=== PATIENT | female | born 1955 | race Hispanic/Latino ===

== ENCOUNTER 2017-04-21 14:47 | Emergency (ER) | payer MEDICARE, MEDICAID ==
[2017-04-21 14:47] VITALS: BMI 42.0
[2017-04-21 14:59] VITALS: RESP 20
[2017-04-21] MEDS ORDERED: Sodium Chloride 0.9% 1,000 ML IV ONE (16:15)
[2017-04-21] MEDS ORDERED: Sodium Chloride 0.9% 1,000 ML ONE (17:04)
[2017-04-21 17:35] LABS: EOS # 0.2 K/uL (0.0-0.7); MEAN CORPUSCULAR HEMOGLOBIN 25.2 pg (27.0-31.0); MONO # 0.6 K/uL (0.0-0.8)
[2017-04-21 17:42] LABS: CHLORIDE 97 mmol/L (98-107)
[2017-04-21 17:43] LABS: POTASSIUM 4.2 mmol/L (3.6-5.2); SODIUM 135 mmol/L (132-148)
[2017-04-21 17:45] LABS: ALB/GLOB RATIO 1.5 (1.0-2.1); ALKALINE PHOSPHATASE 71 U/L (38-126); ALT/SGPT 75 U/L (9-52); AST/SGOT 81 U/L (14-36); BILIRUBIN,TOTAL 0.6 mg/dL (0.2-1.3); BLOOD UREA NITROGEN 14 mg/dL (7-17); CARBON DIOXIDE 25 mmol/L (22-30); GFR AFRICAN-AMERICAN > 60; GLUCOSE,RANDOM 96 mg/dL (65-105); TOTAL PROTEIN 7.1 g/dL (6.3-8.3)
[2017-04-21 17:46] LABS: CALCIUM 7.9 mg/dl (8.6-10.4)
[2017-04-21 17:52] LABS: BASO % 0.4 % (0.0-2.0); EOS % 1.9 % (0.0-4.0); HEMATOCRIT 39.6 % (34.0-47.0); LYMPH % 36.8 % (20.0-40.0); MEAN CELL VOLUME 78.1 fL (81.0-99.0); MEAN CORPUSCULAR HGB CONC 32.3 g/dL (33.0-37.0); MEAN PLATELET VOLUME 8.1 fL (7.2-11.7); NRBC % 0.1 % (0.0-2.0); RED CELL DISTRIBUTION WIDTH 18.1 % (11.5-14.5)
--- NOTE | 2017-04-21 18:15 | C.PDOC ---
History Of Present Illness <Edna Powers - Last Filed: 04/21/17 19:07> <Cedrick Ruff - Last Filed: 04/21/17 22:48> 61 y/o female presents to ED for evaluation of left sided back pain radiating to the abdomen for the last 2 weeks. Pt reports associated hematuria. Pt also complaints of right foot pain s/p trip and fall. Otherwise, denies any change in sensation, n/v/d, bowel/bladder incontinence, dysuria, fever, or chills. Notes being seen by PMD who advised her to report to ED for further evaluation. (PriyaEdna) History Per: Patient History/Exam Limitations: no limitations Onset/Duration Of Symptoms: Days (2 weeks) Current Symptoms Are (Timing): Still Present Quality Of Discomfort: "Pain" Previous Symptoms: Back Pain. denies: Prior Injury Associated Symptoms: None. denies: Incontinence, New Weakness, New Numbness Exacerbating Factor(s): Nothing Recent travel outside of the [place]: No Additional History Per: Patient <Edna Powers - Last Filed: 04/21/17 19:07> <Cedrick Ruff - Last Filed: 04/21/17 22:48> Time Seen by Provider: 04/21/17 16:00 Chief Complaint (Nursing): Back Pain Past Medical History Reviewed: Historical Data, Nursing Documentation, Vital Signs - Medical History PMH: Anemia, Anxiety, Asthma, Bronchitis, CAD, CHF, COPD, Depression, Diabetes, Gall Bladder Disease, HTN, Hypercholesterolemia, Hyperlipidemia, Pneumonia Denies: Chronic Kidney Disease, Seizures, Sexually Transmitted Disease Surgical History: CABG (per old chart, pt denies, but uncertain of type of past open heart surgery), Cholecystectomy Family History: States: CAD - Social History Hx Tobacco Use: No Hx Alcohol Use: No Hx Substance Use: No - Immunization History Hx Tetanus Toxoid Vaccination: No Hx Influenza Vaccination: Yes Hx Pneumococcal Vaccination: Yes <Edna Powers - Last Filed: 04/21/17 19:07> Review Of Systems Except As Marked, All Systems Reviewed And Found Negative. Constitutional: Negative for: Fever, Chills Gastrointestinal: Positive for: Abdominal Pain. Negative for: Nausea, Vomiting , Diarrhea, Constipation Genitourinary: Positive for: Hematuria. Negative for: Dysuria, Frequency, Incontinence, Vaginal Discharge, Vaginal Bleeding Musculoskeletal: Positive for: Back Pain, Foot Pain (right) Skin: Negative for: Rash, Bruising Neurological: Negative for: Weakness, Numbness <Edna Powers - Last Filed: 04/21/17 19:07> Physical Exam - Physical Exam Appears: Non-toxic, No Acute Distress Skin: Warm, Dry, No Rash, Ecchymosis (dorsal aspect of right foot) Head: Atraumatic, Normacephalic Eye(s): bilateral: Normal Inspection, EOMI Nose: Normal Oral Mucosa: Moist Neck: Normal ROM, Supple Chest: Symmetrical Cardiovascular: Rhythm Regular, No Murmur Respiratory: Normal Breath Sounds, No Rales, No Rhonchi, No Wheezing Gastrointestinal/Abdominal: Soft, Tenderness (left sided), No Guarding, No Rebound Back: CVA Tenderness (left), No Vertebral Tenderness, No Paraspinal Tenderness Extremity: Normal ROM, Tenderness, No Pedal Edema, Capillary Refill (<2 sec.), No Deformity, Swelling (dorsal aspect of right foot) Pulses: Left Dorsalis Pedis: Normal, Right Dorsalis Pedis: Normal Neurological/Psych: Oriented x3, Normal Speech, Normal Motor, Normal Sensation <Edna Powers - Last Filed: 04/21/17 19:07> ED Course And Treatment - Laboratory Results Result Diagrams: 04/21/17 17:26 04/21/17 17:26 O2 Sat by Pulse Oximetry: 96 Pulse Ox Interpretation: Normal Progress Note: Blood work, UA, right foot x-ray ordered and reviewed. Pt was given Toradol, and IV fluids. On re-eval, patient is resting comfortably, notes improvement of back pain. No fever, no bony tenderness, no numbness, no weakness , or abdominal pain. Pt endorsed to Dr Ruff pending CT results and re- evaluation. <Edna Powers - Last Filed: 04/21/17 19:07> - Laboratory Results Result Diagrams: 04/21/17 17:26 04/21/17 17:26 <Cedrick Ruff - Last Filed: 04/21/17 22:48> Disposition - Disposition Disposition Time: 19:08 <Edna Powers - Last Filed: 04/21/17 19:07> Discussed With Dr.: Sebastian Olmstead Doctor Will See Patient In The: Office (next week) Counseled Patient/Family Regarding: Studies Performed, Diagnosis, Need For Followup, Rx Given <Cedrick Ruff - Last Filed: 04/21/17 22:48> - Disposition Referrals: Sebastian Olmstead MD [Staff Provider] - Disposition: HOME/ ROUTINE Condition: FAIR Prescriptions: Acetaminophen with Codeine [Tylenol with Codeine #3 Tablet] 1 each PO TID PRN # 15 tablet PRN Reason: Pain, Severe (8-10) Nitrofurantoin Macrocrystals [Macrobid] 1 cap PO BID #14 cap Ondansetron ODT [Zofran ODT] 1 odt PO BID PRN #6 odt PRN Reason: Nausea/Vomiting Instructions: Urinary Tract Infection in Women (DC), Kidney Stones (DC) Forms: [employer] (Armenian) - Clinical Impression Clinical Impression: Foot contusion, Abdominal pain, UTI (urinary tract infection), Kidney stone on right side - 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 - Scribe Statement The provider has reviewed the documentation as recorded by the Scribe <Edna Powers - Last Filed: 04/21/17 19:07> <Cedrick Ruff - Last Filed: 04/21/17 22:48> - Scribe Statement Puma Melendez All medical record entries made by the Scribe were at my direction and personally dictated by me. I have reviewed the chart and agree that the record accurately reflects my personal performance of the history, physical exam, medical decision making, and the department course for this patient. I have also personally directed, reviewed, and agree with the discharge instructions and disposition. (Edna Powers)
[2017-04-21 20:25] LABS: RBC URINE 4 /hpf (0-3); TRANSITIONAL EPITHIAL < 1 /hpf (0-3); URINE BACTERIA OCC (<OCC); URINE BILIRUBIN NEGATIVE (NEGATIVE); URINE BLOOD 1+ (NEGATIVE); URINE COLOR YELLOW (YELLOW); URINE GLUCOSE (UA) NEGATIVE (Normal); URINE KETONE TRACE mg/dL (NEGATIVE); URINE PROTEIN TRACE mg/dL (NEGATIVE); WBC URINE 36 /hpf (0-5)
[2017-04-21 20:26] LABS: URINE LEUKOCYTE ESTERASE 2+ Leu/uL (Negative); URINE UROBILINOGEN 0.2 mg/dL (0.2-1.0)
[2017-04-21 22:54] VITALS: BP 133/77; PULSE 62; TEMP 97.7; O2SAT 96
--- NOTE | 2017-04-22 08:14 | CT ---
PROCEDURE: CT Abdomen and Pelvis without intravenous contrast HISTORY: left flank pain COMPARISON: None. TECHNIQUE: Multiple contiguous axial images were performed through the abdomen and pelvis without intravenous contrast. Subsequently, sagittal and coronal reformatted images were obtained. Radiation dose: Total exam DLP = 1121 mGy-cm. This CT exam was performed using one or more of the following dose reduction techniques: Automated exposure control, adjustment of the mA and/or kV according to patient size, and/or use of iterative reconstruction technique. FINDINGS: LOWER THORAX: Unremarkable. LIVER: Diffuse moderate decrease in hepatic parenchymal density consistent with moderate fatty infiltration. GALLBLADDER AND BILE DUCTS: Gallbladder is not well visualized. PANCREAS: Unremarkable. No gross lesion or ductal dilatation. SPLEEN: Unremarkable. ADRENALS: Unremarkable. No mass. KIDNEYS AND URETERS: Prominent right mid upper renal collecting system calculi measuring up to 1.6 x 0.8 centimeters. No gross hydronephrosis. VASCULATURE: Unremarkable. No aortic aneurysm. BOWEL: Unremarkable. No obstruction. No gross mural thickening. Under distended the right hemicolon. APPENDIX: No findings to suggest acute appendicitis. PERITONEUM: Unremarkable. No free fluid. No free air. LYMPH NODES: Unremarkable. No enlarged lymph nodes. BLADDER: Urinary bladder is decompressed. REPRODUCTIVE: Prominent heterogeneous uterus involving the mid inferior margin as well as in the sagittal projection on series 602, image 95. Underlying myometrial or endometrial lesion cannot entirely be excluded. Correlation with pelvic ultrasound may be helpful. BONES: Degenerative changes in the spine and bilateral SI joints. OTHER FINDINGS: Atherosclerotic calcification within the aorta. Morbid obesity present. IMPRESSION: Negative acute. Right nephrolithiasis measuring up to 1.6 centimeters without evidence of obstructive uropathy. Hepatic steatosis. Enlarged uterus with heterogeneous features. Consider correlation with transvaginal sonogram to exclude potential underlying neoplasm given the patient's stated age. These findings were preliminarily reported at 10:21 p.m. on 04/21/[address] Jozef Arroyo from [facility].
--- NOTE | 2017-04-22 11:20 | RAD ---
PROCEDURE: Right Foot Radiographs. HISTORY: trauma COMPARISON: None. FINDINGS: BONES: Fracture doubted The posterior medial navicular appearance is consistent with a incomplete fused os tibialis externum. . Os peroneum noted. Probable medial 1st metatarsal base cortical hyperostoses-. Inferior calcaneal spur posterior calcaneal spur/blending Achilles enthesophyte JOINTS: Normal. No Lisfranc joint widening suggested SOFT TISSUES: Dorsal soft tissue swelling -mid to distal metatarsal shaft levels. OTHER FINDINGS: None. IMPRESSION: Marked dorsal soft tissue swelling -distal metatarsal levels. No metatarsal fracture or proximal phalangeal fracture seen. If further evaluation is needed, consider MRI of the foot - prominent soft tissue swelling noted. Accessory ossification centers
== END 2017-04-21 22:54 | disposition home or self-care (01) ==
LOC: C.ER 14:47
DX: N20.0 Calculus of kidney (principal); N39.0 Urinary tract infection, site not specified; S90.31XA Contusion of right foot, initial encounter; W01.0XXA Fall on same level from slipping, tripping and stumbling without subsequent striking against object, initial encounter; Y93.9 Activity, unspecified; Y92.9 Unspecified place or not applicable
CPT/HCPCS: 73630; 74176; 80053; 81001; 83690; 85025; 96374; 99284; J1885; J7040

== ENCOUNTER 2017-06-30 16:11 | Emergency (ER) | payer MEDICARE, MEDICAID ==
[2017-06-30 16:11] VITALS: BMI 42.0
[2017-06-30 16:46] VITALS: RESP 20
--- NOTE | 2017-06-30 16:58 | C.PDOC ---
History Of Present Illness 61 yo female w/PMHx HTN, CAD s/p PTCA, DM, COPD, psych ds, BIBA for evaluation of left hip, left lower back pain developed for past few hours after sustained mechanical fall. Pt reports, " was walking with my sister and tripped over her and fell down onto my left side". At present time, pt appears in emotional distress, crying, sitting on bed, no obvious deformity noted to left hip/left leg are. Pt denies head injury, LOC, syncope, headache, dizziness, visual changes, focal deficits, CP, SOB, dyspnea, diaphoresis, palpitation, abd. pain, denies weakness, sensory or vascular deficits to B/L lEs. 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) Past Medical History Reviewed: Historical Data, Nursing Documentation, Vital Signs Vital Signs: Last Vital Signs Temp 98.3 F 06/30/17 18:30 Pulse 67 06/30/17 18:30 Resp 20 06/30/17 18:30 BP 156/73 H 06/30/17 18:30 Pulse Ox 97 06/30/17 18:30 - Medical History PMH: Anemia, Anxiety, Asthma, Bronchitis, CAD, CHF, COPD, Depression, Diabetes, Gall Bladder Disease, HTN, Hypercholesterolemia, Hyperlipidemia, Pneumonia Surgical History: CABG (per old chart, pt denies, but uncertain of type of past open heart surgery), Cholecystectomy - [facility] Procedures DILATION OF 1 COR ART WITH 2 DRUG-ELUT, PERC APPROACH (10/05/16) GROUP PSYCHOTHERAPY (10/28/15) INDIVIDUAL PSYCHOTHERAPY, COGNITIVE-BEHAVIORAL (10/28/15) INTRODUCE OTH THROMBOLYTIC IN CORONARY ART, PERC (10/05/16) INTRODUCTION OF ANTI-INFLAM INTO RESP TRACT, VIA OPENING (07/16/16) MEASURE OF CARDIAC SAMPL & PRESSURE, L HEART, PERC APPROACH (10/05/16) NEBULIZER THERAPY (02/16/15) PLAIN RADIOGRAPHY OF L INT MAMM GRAFT USING OTH CONTRAST (05/17/15) PLAIN RADIOGRAPHY OF MULT COR ART USING OTH CONTRAST (10/05/16) PLAIN RADIOGRAPHY OF RIGHT AND LEFT HEART USING OTH CONTRAST (05/17/15) PLAIN RADIOGRAPHY OF THORACIC AORTA USING OTHER CONTRAST (05/17/15) Family History: States: CAD - Social History Hx Tobacco Use: No Hx Alcohol Use: No Hx Substance Use: No - Immunization History Hx Tetanus Toxoid Vaccination: No Hx Influenza Vaccination: Yes Hx Pneumococcal Vaccination: Yes Review Of Systems Except As Marked, All Systems Reviewed And Found Negative. Eyes: Negative for: Vision Change Cardiovascular: Negative for: Chest Pain, Palpitations Respiratory: Negative for: Shortness of Breath Gastrointestinal: Negative for: Abdominal Pain Musculoskeletal: Positive for: Back Pain (Lower back pain), Other ((+) Left hip pain) Neurological: Negative for: Weakness, Headache, Dizziness Physical Exam - Physical Exam Appears: Well, Non-toxic, No Acute Distress Skin: Normal Color, Warm, No Rash, No Ecchymosis Head: Atraumatic, Normacephalic Eye(s): bilateral: PERRL Nose: No Flaring, No Discharge Oral Mucosa: Moist Tongue: Normal Appearing Lips: Normal Appearing Neck: No Midline Cervical Tenderness, No Paracervical Tenderness, No Step Off Deformity, Supple Cardiovascular: Rhythm Regular Respiratory: No Decreased Breath Sounds, No Accessory Muscle Use, No Stridor, No Wheezing Gastrointestinal/Abdominal: Soft, No Tenderness Back: No CVA Tenderness, Paraspinal Tenderness (mild left lumbar. No midline tenderness, no ecchymoses.) Extremity: Normal ROM (FAROM of LLE), Tenderness (over left hip area. No palpable deformity, no neurovascular deficits to LLE.), No Deformity, No Swelling Neurological/Psych: Oriented x3, Normal Speech, Normal Motor, Normal Sensation, Normal Reflexes ED Course And Treatment O2 Sat by Pulse Oximetry: 98 (RA) Pulse Ox Interpretation: Normal - Other Rad L-spine X-Ray: Interpreted by Me, Viewed By Me Interpretation: (-) acute fx or sublux Pelvis, hip X-Ray: Interpreted by Me, Viewed By Me Interpretation: (-) acute fx or dislocation Progress Note: On re-eval, pt is afebrile, hemodynamicaly stable. Ambulatory in ED with stable gait. Head: AT/NC. ENT: no acute findings. Neck: Supple, (-) midline tenderness. Abd: benign. FAROM of B/L UEs and LEs, no defomrity, no ecchymoses noted. Neurologicaly intact. Imaging review and appears without acute findings. Pt has clinical findings c/w lower back contusion, hip contusion s/p mechanical fall. Pt advised on course of ds. ref. to F/u with PMD , ortho in 2-3 days for re-eval. return to ED if any worsening or new changes. Disposition Counseled Patient/Family Regarding: Studies Performed, Diagnosis, Need For Followup, Rx Given - Disposition Referrals: Sebastian Olmstead MD [Staff Provider] - Disposition: HOME/ ROUTINE Disposition Time: 18:22 Condition: STABLE Additional Instructions: Light duty to left leg Avoid prolong walking take medication for pain as need Follow up with PMD, Orthopedist in2-3 days for re-evaluation. Return to ED if any worsening or new changes. 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 - Scribe Statement The provider has reviewed the documentation as recorded by the Scribe Jodie Miner All medical record entries made by the Scribe were at my direction and personally dictated by me. I have reviewed the chart and agree that the record accurately reflects my personal performance of the history, physical exam, medical decision making, and the department course for this patient. I have also personally directed, reviewed, and agree with the discharge instructions and disposition.
[2017-06-30] MEDS ORDERED: Oxycodone/Acetaminophen 5/325 mg Tab PO STA (17:11)
[2017-06-30] MEDS ORDERED: Oxycodone/Acetaminophen 5/325 mg Tab ONE (18:36)
[2017-06-30 18:46] VITALS: BP 156/73; PULSE 67; TEMP 98.3
--- NOTE | 2017-07-01 09:01 | RAD ---
PROCEDURE: Radiographs of the Lumbar Spine. HISTORY: injury COMPARISON: Correlation made to CT scan of the abdomen pelvis dated 04/21/2017. FINDINGS: BONES: Anterior end plate osteophytic changes Normal alignment. No listhesis. No fracture. DISC SPACES: Mild narrowing. OTHER FINDINGS: None. IMPRESSION: Degenerative changes.
--- NOTE | 2017-07-01 10:04 | RAD ---
PROCEDURE: Left Hip X-ray Radiographs. HISTORY: injury COMPARISON: CT scan of the abdomen and pelvis dated 04/21/2017. FINDINGS: BONES: Normal. No fracture. JOINTS: Normal. SOFT TISSUES: Normal. OTHER FINDINGS: None. IMPRESSION: Normal left hip radiographs.
[2017-07-03 02:16] VITALS: O2SAT 98
== END 2017-06-30 18:43 | disposition home or self-care (01) ==
LOC: C.ER 16:11
DX: M54.5 Low back pain (principal); S70.02XA Contusion of left hip, initial encounter; W01.0XXA Fall on same level from slipping, tripping and stumbling without subsequent striking against object, initial encounter; Y92.89 Other specified places as the place of occurrence of the external cause

== ENCOUNTER 2017-08-21 13:54 | Emergency (ER) | payer MEDICARE, MEDICAID ==
[2017-08-21 13:55] VITALS: BMI 42.0
[2017-08-21 14:22] LABS: BASO # 0.1 K/uL (0.0-0.2); BASO % 1.1 % (0.0-2.0); EOS # 0.1 K/uL (0.0-0.7); EOS % 1.8 % (0.0-4.0); HEMOGLOBIN 13.3 g/dL (11.0-16.0); LYMPH % 35.6 % (20.0-40.0); MEAN CELL VOLUME 79.1 fL (81.0-99.0); MEAN CORPUSCULAR HEMOGLOBIN 26.5 pg (27.0-31.0); MEAN CORPUSCULAR HGB CONC 33.5 g/dL (33.0-37.0); MEAN PLATELET VOLUME 8.2 fL (7.2-11.7); MONO # 0.3 K/uL (0.0-0.8); MONO % 5.7 % (0.0-10.0); NEUT # 3.2 K/uL (1.8-7.0); NEUT % 55.8 % (50.0-75.0); RBC 5.01 Mil/uL (3.80-5.20); RED CELL DISTRIBUTION WIDTH 16.6 % (11.5-14.5); WHITE BLOOD COUNT 5.7 K/uL (4.8-10.8)
[2017-08-21 14:34] LABS: ALB/GLOB RATIO 1.1 (1.0-2.1); ALBUMIN 3.8 g/dL (3.5-5.0); ALT/SGPT 78 U/L (9-52); AST/SGOT 78 U/L (14-36); BLOOD UREA NITROGEN 14 mg/dL (7-17); CALCIUM 8.9 mg/dl (8.6-10.4); GFR AFRICAN-AMERICAN > 60; GFR NON-AFRICAN AMERICAN > 60
--- NOTE | 2017-08-21 14:54 | C.PDOC ---
History Of Present Illness Rosmery Hammonds is a 61 year old female, with a past medical history of diabetes and HTN, who was sent to the emergency department by her PMD for high sugar levels prior to arrival. Patient is also complaining of back pain, and abdominal pain associated with dysuria, chills and nausea onset for several days. 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 Patient also reports an increase frequency and describes a burning pain when she urinates. Last bowel movement was this morning. She denies any fever, chest pain, or shortness of breath. No further medical complaints. PMD: Sebastian Olmstead Time Seen by Provider: 08/21/17 14:06 Chief Complaint (Nursing): Abnormal Labs History Per: Patient History/Exam Limitations: no limitations Onset/Duration Of Symptoms: Days Current Symptoms Are (Timing): Still Present Reports Recently: Treated By A Physician Past Medical History Reviewed: Historical Data, Nursing Documentation, Vital Signs Vital Signs: Last Vital Signs Temp 97.7 F 08/21/17 16:01 Pulse 78 08/21/17 16:01 Resp 18 08/21/17 16:01 BP 135/78 08/21/17 16:01 Pulse Ox 96 08/21/17 17:48 - Medical History PMH: Anemia, Anxiety, Asthma, Bronchitis, CAD, CHF, COPD, Depression, Diabetes, Gall Bladder Disease, HTN, Hypercholesterolemia, Hyperlipidemia, Pneumonia Denies: Hepatitis, HIV, Chronic Kidney Disease, Seizures, Sexually Transmitted Disease Surgical History: CABG (per old chart, pt denies, but uncertain of type of past open heart surgery), Cholecystectomy - [facility] Procedures DILATION OF 1 COR ART WITH 2 DRUG-ELUT, PERC APPROACH (10/05/16) GROUP PSYCHOTHERAPY (10/28/15) INDIVIDUAL PSYCHOTHERAPY, COGNITIVE-BEHAVIORAL (10/28/15) INTRODUCE OTH THROMBOLYTIC IN CORONARY ART, PERC (10/05/16) INTRODUCTION OF ANTI-INFLAM INTO RESP TRACT, VIA OPENING (07/16/16) MEASURE OF CARDIAC SAMPL & PRESSURE, L HEART, PERC APPROACH (10/05/16) NEBULIZER THERAPY (02/16/15) PLAIN RADIOGRAPHY OF L INT MAMM GRAFT USING OTH CONTRAST (05/17/15) PLAIN RADIOGRAPHY OF MULT COR ART USING OTH CONTRAST (10/05/16) PLAIN RADIOGRAPHY OF RIGHT AND LEFT HEART USING OTH CONTRAST (05/17/15) PLAIN RADIOGRAPHY OF THORACIC AORTA USING OTHER CONTRAST (05/17/15) Family History: States: CAD - Social History Hx Tobacco Use: No Hx Alcohol Use: No Hx Substance Use: No - Immunization History Hx Tetanus Toxoid Vaccination: No Hx Influenza Vaccination: Yes Hx Pneumococcal Vaccination: Yes Review Of Systems Constitutional: Positive for: Chills. Negative for: Fever Cardiovascular: Negative for: Chest Pain Respiratory: Negative for: Shortness of Breath Gastrointestinal: Positive for: Nausea, Abdominal Pain Genitourinary: Positive for: Dysuria, Frequency Musculoskeletal: Positive for: Back Pain Physical Exam - Physical Exam Appears: Non-toxic, No Acute Distress Skin: Normal Color, Warm, Dry Head: Atraumatic, Normacephalic Neck: Normal ROM Chest: No Tenderness Cardiovascular: Rhythm Regular Respiratory: Normal Breath Sounds, No Accessory Muscle Use, No Wheezing Gastrointestinal/Abdominal: Normal Exam, Bowel Sounds, Soft, No Tenderness, No Guarding, No Rebound Back: CVA Tenderness (mild right) Extremity: Normal ROM, No Deformity, No Swelling Neurological/Psych: Oriented x3 (alert), Normal Speech, Normal Cognition ED Course And Treatment - Laboratory Results Result Diagrams: 08/21/17 14:16 08/21/17 14:16 O2 Sat by Pulse Oximetry: 96 (RA) Pulse Ox Interpretation: Normal Medical Decision Making Medical Decision Making: Initial impression: Hyperglycemia, UTI Initial Plan: --Comp Metabolic Panel --Ketone, serum (Qual) --CBC w/ differential --reevaluation 530 pm after iv fluids, pt bs 276 with corrected sodium 129, will d/c pt; pt will take evening insulin at home. pt has rx called in for insulin 70/30. will tx for uti, f/u pmd. Disposition Counseled Patient/Family Regarding: Studies Performed, Diagnosis, Need For Followup, Rx Given - Disposition Referrals: Sebastian Olmstead MD [Staff Provider] - Disposition: HOME/ ROUTINE Disposition Time: 17:35 Condition: IMPROVED Additional Instructions: Please take you medications as prescribed. Please make sure to make appointment with your doctor soon for follow up- and also well before you need refills. Take antibiotics as prescribed for urine infection. Drink more fluids. Prescriptions: Cephalexin [Keflex] 500 mg PO QID #28 capsule Instructions: Urinary Tract Infection in Women (ED), Diabetic Hyperglycemia (ED ) Forms: [facility] (French), General Discharge Instructions - Clinical Impression Clinical Impression: UTI (urinary tract infection), Hyperglycemia - Scribe Statement Perry Reeves All medical record entries made by the Scribe were at my direction and personally dictated by me. I have reviewed the chart and agree that the record accurately reflects my personal performance of the history, physical exam, medical decision making, and the department course for this patient. I have also personally directed, reviewed, and agree with the discharge instructions and disposition.
[2017-08-21 15:44] LABS: SQUAMOUS EPITHIAL 2 /hpf (0-5); URINE BACTERIA RARE (<OCC); URINE BILIRUBIN NEGATIVE (NEGATIVE); URINE CLARITY Clear (Clear); URINE COLOR Yellow (YELLOW); URINE GLUCOSE (UA) 3+ mg/dL (Normal); URINE NITRATE NEGATIVE (NEGATIVE); URINE PROTEIN 1+ mg/dL (NEGATIVE); URINE UROBILINOGEN NORMAL mg/dL (0.2-1.0)
[2017-08-21 16:01] VITALS: BP 135/78; PULSE 78; RESP 18; TEMP 97.7
[2017-08-21 16:01] LABS: URINE BLOOD 3+ (NEGATIVE); URINE LEUKOCYTE ESTERASE 3+ Leu/uL (Negative)
[2017-08-21 17:38] VITALS: O2SAT 96
== END 2017-08-21 17:52 | disposition home or self-care (01) ==
LOC: C.ER 13:54
DX: E11.65 Type 2 diabetes mellitus with hyperglycemia (principal); N39.0 Urinary tract infection, site not specified; I10 Essential (primary) hypertension; Z79.4 Long term (current) use of insulin; Z79.84 Long term (current) use of oral hypoglycemic drugs; Z87.891 Personal history of nicotine dependence

== ENCOUNTER 2017-09-18 12:18 | Emergency (ER) | payer MEDICARE, MEDICAID ==
[2017-09-18 12:35] VITALS: BMI 41.7
[2017-09-18 12:39] VITALS: TEMP 97.4
[2017-09-18 13:26] LABS: HCG,QUALITATIVE URINE NEGATIVE (NEGATIVE); SQUAMOUS EPITHIAL 9 /hpf (0-5); URINE BILIRUBIN NEGATIVE (NEGATIVE); URINE BLOOD 3+ (NEGATIVE); URINE CLARITY Hazy (Clear); URINE COLOR Yellow (YELLOW); URINE GLUCOSE (UA) NORMAL (Normal); URINE LEUKOCYTE ESTERASE 3+ Leu/uL (Negative); URINE NITRATE NEGATIVE (NEGATIVE); URINE PROTEIN 2+ mg/dL (NEGATIVE); URINE UROBILINOGEN NORMAL mg/dL (0.2-1.0)
[2017-09-18 14:11] LABS: BASO # 0.1 K/uL (0.0-0.2); BASO % 1.1 % (0.0-2.0); EOS # 0.5 K/uL (0.0-0.7); EOS % 4.2 % (0.0-4.0); HEMOGLOBIN 12.6 g/dL (11.0-16.0); LYMPH # 2.4 K/uL (1.0-4.3); LYMPH % 21.7 % (20.0-40.0); MEAN CELL VOLUME 79.8 fL (81.0-99.0); MEAN CORPUSCULAR HEMOGLOBIN 26.9 pg (27.0-31.0); MEAN CORPUSCULAR HGB CONC 33.7 g/dL (33.0-37.0); MONO # 0.7 K/uL (0.0-0.8); NEUT # 7.6 K/uL (1.8-7.0); NRBC % 0.1 % (0.0-2.0); RBC 4.69 Mil/uL (3.80-5.20); RED CELL DISTRIBUTION WIDTH 16.7 % (11.5-14.5)
[2017-09-18 14:19] LABS: WHITE BLOOD COUNT 11.3 K/uL (4.8-10.8)
[2017-09-18 14:30] LABS: PROTHROMBIN TIME 10.9 SECONDS (9.7-12.2)
[2017-09-18 15:07] LABS: ALB/GLOB RATIO 1.1 (1.0-2.1); ALBUMIN 3.9 g/dL (3.5-5.0); ALT/SGPT 110 U/L (9-52); AST/SGOT 85 U/L (14-36); BLOOD UREA NITROGEN 20 mg/dL (7-17); CALCIUM 8.7 mg/dl (8.6-10.4); GFR AFRICAN-AMERICAN > 60; GFR NON-AFRICAN AMERICAN > 60
[2017-09-18 15:21] VITALS: BP 113/70; PULSE 82; RESP 20; O2SAT 97
--- NOTE | 2017-09-18 16:52 | CT ---
PROCEDURE: CT Abdomen and Pelvis without Oral or IV contrast. HISTORY: hematuria, left flank pain COMPARISON: CT abdomen and pelvis without contrast performed 04/21/17 TECHNIQUE: Contiguous axial images of the abdomen and pelvis. No oral or IV contrast administered. Coronal and Sagittal reformats generated and reviewed. Radiation dose: Total exam DLP = 1065.34 mGy-cm. This CT exam was performed using one or more of the following dose reduction techniques: Automated exposure control, adjustment of the mA and/or kV according to patient size, and/or use of iterative reconstruction technique. FINDINGS: There is limited evaluation of the solid organs without the administration of IV contrast. LOWER THORAX: No visible consolidation, pleural effusion, or pneumothorax. Partially imaged median sternotomy wires. LIVER: Superior most hepatic dome excluded from view. Hepatomegaly. GALLBLADDER AND BILE DUCTS: The gallbladder is not visualized. PANCREAS: Fatty atrophy. SPLEEN: Unremarkable unenhanced appearance. ADRENALS: Unremarkable. KIDNEYS AND URETERS: No hydronephrosis or obstructing renal calculus. 8 mm nonobstructing right renal calculus. BLADDER: Under distention of the urinary bladder limits evaluation. REPRODUCTIVE: Uterus is present with heterogeneous appearance of the uterine parenchyma. APPENDIX: The appendix appears within normal limits of caliber. No secondary signs of acute appendicitis. BOWEL: The stomach is nondistended. Lack of oral contrast limits evaluation for bowel pathology. The bowel loops appear within normal limits of caliber without evidence of intestinal obstruction. Diverticulosis without CT evidence of acute diverticulitis. PERITONEUM: No significant free fluid. No definite free air. LYMPH NODES: No bulky lymphadenopathy identified. VASCULATURE: Atherosclerotic calcifications. No aortic aneurysm. BONES: Degenerative changes. OTHER FINDINGS: None. IMPRESSION: No acute findings identified. Additional findings as above.
--- NOTE | 2017-09-18 17:23 | C.PDOC ---
History Of Present Illness 61 y/o female presents to the ER complaining of vaginal bleeding. Patient states that she has an endometrial biopsy scheduled in the beginning of October. Patient reports that she goes to psychotherapy in [place] where she mentioned that she has vaginal bleeding. As result, they recommended her to visit the ER. Time Seen by Provider: 09/18/17 13:25 Chief Complaint (Nursing): Female Genitourinary History Per: Patient History/Exam Limitations: no limitations Onset/Duration Of Symptoms: Days Current Symptoms Are (Timing): Still Present Severity: Moderate Past Medical History Reviewed: Historical Data, Nursing Documentation, Vital Signs Vital Signs: Last Vital Signs Temp 97.4 F L 09/18/17 12:35 Pulse 82 09/18/17 15:20 Resp 20 09/18/17 15:20 BP 113/70 09/18/17 15:20 Pulse Ox 97 09/18/17 17:42 - Medical History PMH: Anemia, Anxiety, Asthma, Bronchitis, CAD, CHF, COPD, Depression, Diabetes, Gall Bladder Disease, HTN, Hypercholesterolemia, Hyperlipidemia, Pneumonia Denies: Hepatitis, HIV, Chronic Kidney Disease, Seizures, Sexually Transmitted Disease Surgical History: CABG (per old chart, pt denies, but uncertain of type of past open heart surgery), Cholecystectomy - [facility] Procedures DILATION OF 1 COR ART WITH 2 DRUG-ELUT, PERC APPROACH (10/05/16) GROUP PSYCHOTHERAPY (10/28/15) INDIVIDUAL PSYCHOTHERAPY, COGNITIVE-BEHAVIORAL (10/28/15) INTRODUCE OTH THROMBOLYTIC IN CORONARY ART, PERC (10/05/16) INTRODUCTION OF ANTI-INFLAM INTO RESP TRACT, VIA OPENING (07/16/16) MEASURE OF CARDIAC SAMPL & PRESSURE, L HEART, PERC APPROACH (10/05/16) NEBULIZER THERAPY (02/16/15) PLAIN RADIOGRAPHY OF L INT MAMM GRAFT USING OTH CONTRAST (05/17/15) PLAIN RADIOGRAPHY OF MULT COR ART USING OTH CONTRAST (10/05/16) PLAIN RADIOGRAPHY OF RIGHT AND LEFT HEART USING OTH CONTRAST (05/17/15) PLAIN RADIOGRAPHY OF THORACIC AORTA USING OTHER CONTRAST (05/17/15) Family History: States: CAD - Social History Hx Tobacco Use: No Hx Alcohol Use: No Hx Substance Use: No - Immunization History Hx Tetanus Toxoid Vaccination: No Hx Influenza Vaccination: Yes Hx Pneumococcal Vaccination: Yes Review Of Systems Except As Marked, All Systems Reviewed And Found Negative. Constitutional: Negative for: Fever, Chills Genitourinary: Positive for: Vaginal Bleeding Physical Exam - Physical Exam Appears: Non-toxic, No Acute Distress Skin: Normal Color, Warm Head: Atraumatic, Normacephalic Eye(s): bilateral: Normal Inspection Nose: Normal Oral Mucosa: Moist Neck: Supple Chest: Symmetrical Cardiovascular: Rhythm Regular Respiratory: Normal Breath Sounds, No Accessory Muscle Use, No Rales, No Rhonchi , No Wheezing Gastrointestinal/Abdominal: Normal Exam, Soft, No Tenderness Rectal: Heme Positive, Other (brown stool) Pelvic: No Vaginal Bleeding, Other (erythema of the vulva and labias, some whitish exudates on the labia and cottage cheese like exudates on the vagina) Extremity: Normal ROM Neurological/Psych: Oriented x3, Normal Speech, Normal Motor, Normal Sensation ED Course And Treatment - Laboratory Results Result Diagrams: 09/18/17 14:06 09/18/17 14:51 O2 Sat by Pulse Oximetry: 97 (RA) Pulse Ox Interpretation: Normal - CT Scan/US CT of Abdomen/Pelvis Other Rad Studies (CT/US): Read By Radiologist, Radiology Report Reviewed CT/US Interpretation: Accession No. : [id number]. Patient Name / ID : RACHAEL MORE / [id number]. Exam Date : 09/18/2017 16:21:41 ( Approved ). Study Comment : Sex / Age : F / 61Y. Creator : Tanisha Garcia. Dictator : Jennifer Gonzalez MD. Java Websphere Developer : Curing Finisher : Jennifer Gonzalez MD. Approver2 : Report Date : 09/18/2017 16:34:00. My Comment : . PROCEDURE: CT Abdomen and Pelvis without Oral or IV contrast. HISTORY: hematuria, left flank pain. COMPARISON: CT abdomen and pelvis without contrast performed . TECHNIQUE: Contiguous axial images of the abdomen and pelvis. No oral or IV contrast administered. Coronal and Sagittal reformats generated and reviewed. Radiation dose: Total exam DLP = 1065.34 mGy-cm. This CT exam was performed using one or more of the following dose reduction techniques: Automated exposure control, adjustment of the mA and/or kV according to patient size, and/or use of iterative reconstruction technique. FINDINGS: There is limited evaluation of the solid organs without the administration of IV contrast. LOWER THORAX: No visible consolidation, pleural effusion, or pneumothorax. Partially imaged median sternotomy wires. LIVER: Superior most hepatic dome excluded from view. Hepatomegaly. GALLBLADDER AND BILE DUCTS: The gallbladder is not visualized. PANCREAS: Fatty atrophy. SPLEEN: Unremarkable unenhanced appearance. ADRENALS: Unremarkable. KIDNEYS AND URETERS: No hydronephrosis or obstructing renal calculus. 8 mm nonobstructing right renal calculus. BLADDER: Under distention of the urinary bladder limits evaluation. REPRODUCTIVE: Uterus is present with heterogeneous appearance of the uterine parenchyma. APPENDIX: The appendix appears within normal limits of caliber. No secondary signs of acute appendicitis. BOWEL: The stomach is nondistended. Lack of oral contrast limits evaluation for bowel pathology. The bowel loops appear within normal limits of caliber without evidence of intestinal obstruction. Diverticulosis without CT evidence of acute diverticulitis. PERITONEUM: No significant free fluid. No definite free air. LYMPH NODES: No bulky lymphadenopathy identified. VASCULATURE: Atherosclerotic calcifications. No aortic aneurysm. BONES: Degenerative changes. OTHER FINDINGS: None. IMPRESSION: No acute findings identified. Additional findings as above. Progress Note: UA and CT-Abd/Pelv. ordered.UA was positive for signs of UTI. CT- Abd/Pelv. was found to be negative. Patient has been given prescriptions for UTI and discharged home. Disposition - Disposition Disposition: HOME/ ROUTINE Disposition Time: 17:31 Condition: STABLE Additional Instructions: Follow up with your PMD and OBGYN within 1-2 days. Return to ED if feel worse. Prescriptions: Nitrofurantoin Macrocrystals [Macrobid] 100 mg PO Q12 #14 cap Terconazole [Terazol 7] 0.4 cre VG DAILY #7 cre Acetaminophen [Tylenol 325mg tab] 2 tab PO Q6 #50 tab Instructions: Vulvovaginal Yeast Infection, Bloody Stools, Adult (DC), Acute Cystitis (DC) Forms: [facility] (Zambian) - Clinical Impression Clinical Impression: UTI (urinary tract infection), Vaginitis, Heme positive stool - PA / PAINT ROLLER COVER MACHINE SETTER / 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 - Scribe Statement The provider has reviewed the documentation as recorded by the Scribe Gilbert Arboleda Provider Attestation All medical record entries made by the Scribe were at my direction and personally dictated by me. I have reviewed the chart and agree that the record accurately reflects my personal performance of the history, physical exam, medical decision making, and the department course for this patient. I have also personally directed, reviewed, and agree with the discharge instructions and disposition.
== END 2017-09-18 17:57 | disposition home or self-care (01) ==
LOC: C.ER 12:18
DX: N39.0 Urinary tract infection, site not specified (principal); N76.0 Acute vaginitis; K92.1 Melena
CPT/HCPCS: 74176; 80053; 81001; 84703; 85025; 85610; 85730; 87086; 87181; 99285; G0328

== ENCOUNTER 2017-11-10 11:44 | Emergency (ER) | payer MEDICARE, MEDICAID ==
[2017-11-10 11:44] VITALS: BMI 41.7
[2017-11-10 12:23] VITALS: RESP 18
--- NOTE | 2017-11-10 13:58 | C.PDOC ---
History Of Present Illness 62 year old female presents to the ED for evaluation of intermittent vaginal bleeding and pelvic cramping which began 3 days ago. Patient states she underwent a procedure by her NECK CUTTER 2 weeks; patient is unsure what the specific procedure was or why it was done. She has not contacted or been evaluated by her NECK CUTTER for current symptoms. Patient denies fever, chills, chest pain, shortness of breath, nausea, vomiting, diarrhea, dysuria. NECK CUTTER: Dr. Izaguirre Time Seen by Provider: 11/10/17 13:04 Chief Complaint (Nursing): Female Genitourinary History Per: Patient History/Exam Limitations: no limitations Onset/Duration Of Symptoms: Days (3), Intermittent Episodes Current Symptoms Are (Timing): Still Present Severity: Mild Quality Of Discomfort: Cramping Associated Symptoms: denies: Fever, Chills, Nausea, Vomiting, Diarrhea, Chest Pain, Urinary Symptoms (dysuria, hematuria ) Additional History Per: Patient Abnormal Vaginal Bleeding: Yes Past Medical History Reviewed: Historical Data, Nursing Documentation, Vital Signs Vital Signs: Last Vital Signs Temp 9 F L 11/10/17 17:51 Pulse 70 11/10/17 17:51 Resp 18 11/10/17 17:51 BP 170/92 H 11/10/17 17:51 Pulse Ox 100 11/10/17 17:51 - Medical History PMH: Anemia, Anxiety, Asthma, Bronchitis, CAD, CHF, COPD, Depression, Diabetes, Gall Bladder Disease, HTN, Hypercholesterolemia, Hyperlipidemia, Pneumonia Surgical History: CABG (per old chart, pt denies, but uncertain of type of past open heart surgery), Cholecystectomy - [facility] Procedures DILATION OF 1 COR ART WITH 2 DRUG-ELUT, PERC APPROACH (10/05/16) GROUP PSYCHOTHERAPY (10/28/15) INDIVIDUAL PSYCHOTHERAPY, COGNITIVE-BEHAVIORAL (10/28/15) INTRODUCE OTH THROMBOLYTIC IN CORONARY ART, PERC (10/05/16) INTRODUCTION OF ANTI-INFLAM INTO RESP TRACT, VIA OPENING (07/16/16) MEASURE OF CARDIAC SAMPL & PRESSURE, L HEART, PERC APPROACH (10/05/16) NEBULIZER THERAPY (02/16/15) PLAIN RADIOGRAPHY OF L INT MAMM GRAFT USING OTH CONTRAST (05/17/15) PLAIN RADIOGRAPHY OF MULT COR ART USING OTH CONTRAST (10/05/16) PLAIN RADIOGRAPHY OF RIGHT AND LEFT HEART USING OTH CONTRAST (05/17/15) PLAIN RADIOGRAPHY OF THORACIC AORTA USING OTHER CONTRAST (05/17/15) Family History: States: CAD - Social History Hx Tobacco Use: No Hx Alcohol Use: No Hx Substance Use: No - Immunization History Hx Tetanus Toxoid Vaccination: No Hx Influenza Vaccination: Yes Hx Pneumococcal Vaccination: Yes Review Of Systems Except As Marked, All Systems Reviewed And Found Negative. Constitutional: Negative for: Fever, Chills Respiratory: Negative for: Cough, Shortness of Breath Gastrointestinal: Negative for: Nausea, Vomiting, Diarrhea Genitourinary: Positive for: Vaginal Bleeding, Other (pelvic cramping ). Negative for: Dysuria, Hematuria Skin: Negative for: Rash Physical Exam - Physical Exam Appears: Well, Non-toxic, No Acute Distress Skin: Normal Color, Warm, Dry, No Rash Head: Normacephalic Eye(s): bilateral: Normal Inspection Oral Mucosa: Moist Neck: Supple Cardiovascular: Rhythm Regular Respiratory: Normal Breath Sounds, No Rales, No Rhonchi, No Wheezing Gastrointestinal/Abdominal: Normal Exam, Bowel Sounds, Soft, No Tenderness, Other (obese) Pelvic: No Vaginal Bleeding, No Vaginal Discharge, No Cervical Motion Tenderness , No Cervix Open (closed), No Adnexal Tenderness, No Tender Uterus, Other ( erythema to B/L labia majora (fungal in appearance)) Extremity: Normal ROM Neurological/Psych: Oriented x3 ED Course And Treatment - Laboratory Results Result Diagrams: 11/10/17 13:57 11/10/17 13:57 O2 Sat by Pulse Oximetry: 97 (on RA) Pulse Ox Interpretation: Normal - CT Scan/US ct abd/pelvis Other Rad Studies (CT/US): Read By Radiologist, Radiology Report Reviewed CT/US Interpretation: Accession No. : [id number]. Patient Name / ID : RACHAEL MORE / [id number]. Exam Date : 11/10/2017 15:31:28 ( Approved ). Study Comment : Sex / Age : F / 62Y. Creator : Tanisha Garcia. Dictator : Nata Gregorio MD. Hog Ringer : Traffic Monitor Specialist : Nata Gregorio MD. Approver2 : Report Date : 11/10/2017 15:52:27. My Comment : . PROCEDURE: CT Abdomen and Pelvis without intravenous contrast. HISTORY: pelvic pain, hematuria,r/o kidney stone. COMPARISON: 09/18/2017. TECHNIQUE: CT scan of the abdomen and pelvis was performed without administration of intravenous contrast. Oral contrast was not administered. Coronal and sagittal reformatted images were obtained. Radiation dose: Total exam DLP =. Total exam DLP = 1211.09 MGy-cm. This CT exam was performed using one or more of the following dose reduction techniques: Automated exposure control, adjustment of the mA and/ or kV according to patient size, and/or use of iterative reconstruction technique. FINDINGS: LOWER THORAX: The lung bases are clear. LIVER: There is mild hepatomegaly and fatty liver. No ductal dilatation. GALLBLADDER AND BILE DUCTS: Not visualized and likely surgically absent. PANCREAS: Normal in size. No gross lesion or ductal dilatation. SPLEEN: Normal in sinus. ADRENALS : No discrete nodule. KIDNEYS AND URETERS: Both kidneys are normal in size. There is a 8 mm nonobstructing stone an punctate nonobstructing stone in the lower pole of the right kidney. No hydronephrosis. VASCULATURE: Unremarkable. No aortic aneurysm. BOWEL: The small bowel loops are normal in caliber. The colon is unremarkable. No obstruction. No gross mural thickening. APPENDIX: Normal appendix. PERITONEUM: No free fluid. No free air. LYMPH NODES: No enlarged lymph nodes. BLADDER: Unremarkable. REPRODUCTIVE: The uterus is enlarged for postmenopausal status with apparent thickening of the endometrium. BONES: No acute fracture. Within normal limits for the patient's age the. OTHER FINDINGS: None. IMPRESSION: 1. 8 mm nonobstructing stone in the lower pole of the right kidney. No hydronephrosis or obstructive uropathy. 2. Enlarged bulky uterus with apparent thickening of the central endometrial echo complex. Pelvic ultrasound is recommended for complete evaluation. Progress Note: Bloodwork, UA ordered and reviewed. IV toradol given for pain. UA shows RBCs and blood - CT scan abd/pelvis ordered to evaluate for kidney stone. Patient's pelvic exam does not show evidence of vaginal bleeding - patient's complaint likely due to hematuria. Reevaluation Time: 17:00 Reassessment Condition: Improved (Patient reassessed, is resting comfortably and states she feels better. CT scan shows stone in right kidney, no hydronephrosis. Patient instructed to follow up with Dr. Jurado and with urology within 1 week. She understands she should return to ED if symptoms worsen.) - Physician Consult Information Physician Contacted: Sony Izaguirre Outcome Of Conversation: Discussed patient with her data center technician, patient has hysteroscopic myomectomy/endometrial biopsy (due to postmenopausal bleeding). He states patient's pathology came back negative/benign. No need for ultrasound at this time, recommends blood sugar control and Diflucan for vulvovaginal candidiasis. Disposition Counseled Patient/Family Regarding: Studies Performed, Diagnosis, Need For Followup, Rx Given - Disposition Referrals: Alberto Calix MD [Staff Provider] - Sony Izaguirre MD [Staff Provider] - Disposition: HOME/ ROUTINE Disposition Time: 17:00 Condition: STABLE Additional Instructions: FOLLOW UP WITH YOUR NECK CUTTER AND WITH UROLOGY WITHIN 1 WEEK USE MEDICATIONS DIRECTED RETURN TO ER IF SYMPTOMS WORSEN Prescriptions: Naproxen 375 mg PO BID PRN #20 tablet PRN Reason: pain Tamsulosin [Flomax] 0.4 mg PO DAILY #7 cap Instructions: Kidney Stones (DC), Blood in the Urine (Hematuria), Adult (DC) Forms: [facility] (Turkish) Print Language: RWANDAN - POA Present On Arrival: None - Clinical Impression Clinical Impression: Hematuria, Kidney stone, Enlarged uterus - Scribe Statement The provider has reviewed the documentation as recorded by the Scribe (Ranjana Melendez) Provider Attestation: All medical record entries made by the Scribe were at my direction and personally dictated by me. I have reviewed the chart and agree that the record accurately reflects my personal performance of the history, physical exam, medical decision making, and the department course for this patient. I have also personally directed, reviewed, and agree with the discharge instructions and disposition.
[2017-11-10 14:00] LABS: BASO # 0.1 K/uL (0.0-0.2); BASO % 1.2 % (0.0-2.0); EOS # 0.3 K/uL (0.0-0.7); EOS % 4.4 % (0.0-4.0); HEMOGLOBIN 12.8 g/dL (11.0-16.0); LYMPH # 2.3 K/uL (1.0-4.3); LYMPH % 34.8 % (20.0-40.0); MEAN CELL VOLUME 80.2 fL (81.0-99.0); MEAN CORPUSCULAR HEMOGLOBIN 26.9 pg (27.0-31.0); MEAN CORPUSCULAR HGB CONC 33.5 g/dL (33.0-37.0); MEAN PLATELET VOLUME 7.9 fL (7.2-11.7); MONO # 0.4 K/uL (0.0-0.8); MONO % 5.8 % (0.0-10.0); NEUT # 3.5 K/uL (1.8-7.0); NEUT % 53.8 % (50.0-75.0); RBC 4.79 Mil/uL (3.80-5.20); RED CELL DISTRIBUTION WIDTH 16.2 % (11.5-14.5); WHITE BLOOD COUNT 6.6 K/uL (4.8-10.8)
[2017-11-10 14:08] LABS: PROTHROMBIN TIME 11.2 SECONDS (9.7-12.2)
[2017-11-10 14:13] LABS: ALBUMIN 3.9 g/dL (3.5-5.0); ALT/SGPT 93 U/L (9-52); AST/SGOT 135 U/L (14-36); BLOOD UREA NITROGEN 14 mg/dL (7-17); CALCIUM 8.9 mg/dl (8.6-10.4); GFR AFRICAN-AMERICAN > 60; GFR NON-AFRICAN AMERICAN > 60
[2017-11-10 14:43] LABS: URINE BACTERIA RARE (<OCC); URINE BILIRUBIN NEGATIVE (NEGATIVE); URINE BLOOD 3+ (NEGATIVE); URINE GLUCOSE (UA) 3+ mg/dL (Normal); URINE LEUKOCYTE ESTERASE TRACE Leu/uL (Negative); URINE PROTEIN 2+ mg/dL (NEGATIVE); URINE UROBILINOGEN NORMAL mg/dL (0.2-1.0)
[2017-11-10 14:44] LABS: URINE CLARITY Turbid (Clear)
[2017-11-10 14:45] LABS: SQUAMOUS EPITHIAL 2 /hpf (0-5); URINE COLOR RED (YELLOW)
--- NOTE | 2017-11-10 16:21 | CT ---
PROCEDURE: CT Abdomen and Pelvis without intravenous contrast HISTORY: pelvic pain, hematuria,r/o kidney stone COMPARISON: 09/18/2017. TECHNIQUE: CT scan of the abdomen and pelvis was performed without administration of intravenous contrast. Oral contrast was not administered. Coronal and sagittal reformatted images were obtained. Radiation dose: Total exam DLP = Total exam DLP = 1211.09 MGy-cm. This CT exam was performed using one or more of the following dose reduction techniques: Automated exposure control, adjustment of the mA and/or kV according to patient size, and/or use of iterative reconstruction technique. FINDINGS: LOWER THORAX: The lung bases are clear. LIVER: There is mild hepatomegaly and fatty liver. No ductal dilatation. GALLBLADDER AND BILE DUCTS: Not visualized and likely surgically absent. PANCREAS: Normal in size. No gross lesion or ductal dilatation. SPLEEN: Normal in sinus. ADRENALS: No discrete nodule. KIDNEYS AND URETERS: Both kidneys are normal in size. There is a 8 mm nonobstructing stone an punctate nonobstructing stone in the lower pole of the right kidney. No hydronephrosis. VASCULATURE: Unremarkable. No aortic aneurysm. BOWEL: The small bowel loops are normal in caliber. The colon is unremarkable. No obstruction. No gross mural thickening. APPENDIX: Normal appendix. PERITONEUM: No free fluid. No free air. LYMPH NODES: No enlarged lymph nodes. BLADDER: Unremarkable. REPRODUCTIVE: The uterus is enlarged for postmenopausal status with apparent thickening of the endometrium. BONES: No acute fracture. Within normal limits for the patient's age the OTHER FINDINGS: None. IMPRESSION: 1. 8 mm nonobstructing stone in the lower pole of the right kidney. No hydronephrosis or obstructive uropathy. 2. Enlarged bulky uterus with apparent thickening of the central endometrial echo complex. Pelvic ultrasound is recommended for complete evaluation.
[2017-11-10 17:52] VITALS: BP 170/92; PULSE 70; TEMP 9
[2017-11-12 15:30] VITALS: O2SAT 97
== END 2017-11-10 17:52 | disposition home or self-care (01) ==
LOC: C.ER 11:44
DX: N20.0 Calculus of kidney (principal); N85.2 Hypertrophy of uterus; R31.9 Hematuria, unspecified
CPT/HCPCS: 74176; 80053; 81001; 85025; 85610; 85730; 87086; 87181; 96374; 99285; J1885

== ENCOUNTER 2018-05-14 09:45 | Observation (INO) | payer MEDICARE, MEDICAID ==
[2018-05-14 09:45] VITALS: BMI 41.7
--- NOTE | 2018-05-14 10:14 | C.PDOC ---
History Of Present Illness 62 y/o female with history of Asthma, CAD, CHF, Anxiety, Hypercholesterolemia and DM presents to ED with c/o sob and cough for "months". Patient reports chest pain is worse with cough, reports she has inhaler and nebulizer at home which she used with no significant improvement. Also c/o left sided abdominal pain for "months". States she was evaluated in the past for it and has to follow up with urologist next week. Patient denies fever, chills, nausea, vomiting, leg swelling or any other complaints at this time. Time Seen by Provider: 05/14/18 09:56 Chief Complaint (Nursing): Chest Pain History Per: Patient History/Exam Limitations: no limitations Onset/Duration Of Symptoms: Days Current Symptoms Are (Timing): Still Present Initiating Event: Upper Respiratory Illness Past Medical History Reviewed: Historical Data, Nursing Documentation, Vital Signs Vital Signs: Last Vital Signs Temp 98.6 F 05/14/18 09:53 Pulse 67 05/14/18 09:53 Resp 18 05/14/18 09:53 BP 188/79 H 05/14/18 09:53 Pulse Ox 96 05/14/18 09:53 - Medical History PMH: Anemia, Anxiety, Asthma, Bronchitis, CAD, CHF, COPD, Depression, Diabetes, Gall Bladder Disease, HTN, Hypercholesterolemia, Hyperlipidemia, Pneumonia Surgical History: CABG (per old chart, pt denies, but uncertain of type of past open heart surgery), Cholecystectomy - [facility] Procedures DILATION OF 1 COR ART WITH 2 DRUG-ELUT, PERC APPROACH (10/05/16) GROUP PSYCHOTHERAPY (10/28/15) INDIVIDUAL PSYCHOTHERAPY, COGNITIVE-BEHAVIORAL (10/28/15) INTRODUCE OTH THROMBOLYTIC IN CORONARY ART, PERC (10/05/16) INTRODUCTION OF ANTI-INFLAM INTO RESP TRACT, VIA OPENING (07/16/16) MEASURE OF CARDIAC SAMPL & PRESSURE, L HEART, PERC APPROACH (10/05/16) NEBULIZER THERAPY (02/16/15) PLAIN RADIOGRAPHY OF L INT MAMM GRAFT USING OTH CONTRAST (05/17/15) PLAIN RADIOGRAPHY OF MULT COR ART USING OTH CONTRAST (10/05/16) PLAIN RADIOGRAPHY OF RIGHT AND LEFT HEART USING OTH CONTRAST (05/17/15) PLAIN RADIOGRAPHY OF THORACIC AORTA USING OTHER CONTRAST (05/17/15) Family History: States: CAD - Social History Hx Tobacco Use: No Hx Alcohol Use: No Hx Substance Use: No - Immunization History Hx Tetanus Toxoid Vaccination: No Hx Influenza Vaccination: Yes (04/2018) Hx Pneumococcal Vaccination: Yes Review Of Systems Constitutional: Negative for: Fever, Chills Respiratory: Positive for: Cough, Shortness of Breath Gastrointestinal: Positive for: Abdominal Pain. Negative for: Nausea, Vomiting Skin: Negative for: Rash Physical Exam - Physical Exam Appears: Non-toxic, No Acute Distress, Other (Anxious, Obese ) Skin: Warm, Dry Head: Atraumatic, Normacephalic Eye(s): bilateral: Normal Inspection, EOMI Nose: Normal Oral Mucosa: Moist Neck: Normal ROM, Supple Chest: Symmetrical Cardiovascular: Rhythm Regular Respiratory: Decreased Breath Sounds, No Rales, No Rhonchi Gastrointestinal/Abdominal: Soft, Tenderness (left sided flank), No Guarding, No Rebound Back: No CVA Tenderness Extremity: Normal ROM, No Pedal Edema, Capillary Refill (<2 seconds) Neurological/Psych: Oriented x3, Normal Speech, Normal Cognition ED Course And Treatment - Laboratory Results Result Diagrams: 05/14/18 11:00 05/16/18 12:58 O2 Sat by Pulse Oximetry: 96 (RA) Pulse Ox Interpretation: Normal Progress Note: Neb treatment administered. D/w Dr. Mcguire accepts patient be admitted under his service for asthma exacerbation. Disposition - Disposition Disposition: HOSPITALIZED Disposition Time: 05:06 Condition: STABLE - Clinical Impression Clinical Impression: Asthma exacerbation, Anxiety, Abdominal pain - PA / SUBMARINE OPERATOR / 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 - Scribe Statement The provider has reviewed the documentation as recorded by the Florian Uribe All medical record entries made by the Florian were at my direction and personally dictated by me. I have reviewed the chart and agree that the record accurately reflects my personal performance of the history, physical exam, medical decision making, and the department course for this patient. I have also personally directed, reviewed, and agree with the discharge instructions and disposition.
[2018-05-14] MEDS ORDERED: Albuterol 0.083% Inhal Sol (2.5 mg/3 mL) UD IH STA (10:31)
[2018-05-14] MEDS ORDERED: Albuterol 0.083% Inhal Sol (2.5 mg/3 mL) UD ONE (10:41)
[2018-05-14 11:08] LABS: BASO % 0.6 % (0.0-2.0); EOS # 0.2 K/uL (0.0-0.7); HEMOGLOBIN 12.2 g/dL (11.0-16.0); MEAN CELL VOLUME 81.9 fL (81.0-99.0); MEAN CORPUSCULAR HEMOGLOBIN 27.2 pg (27.0-31.0); MEAN CORPUSCULAR HGB CONC 33.2 g/dL (33.0-37.0); MEAN PLATELET VOLUME 7.8 fL (7.2-11.7); MONO # 0.4 K/uL (0.0-0.8); MONO % 6.5 % (0.0-10.0); NEUT # 3.7 K/uL (1.8-7.0); NEUT % 57.9 % (50.0-75.0); RBC 4.49 Mil/uL (3.80-5.20); RED CELL DISTRIBUTION WIDTH 15.4 % (11.5-14.5); WHITE BLOOD COUNT 6.3 K/uL (4.8-10.8)
[2018-05-14 11:21] LABS: ALB/GLOB RATIO 1.4 (1.0-2.1); ALBUMIN 4.1 g/dL (3.5-5.0); ALT/SGPT 76 U/L (9-52); AST/SGOT 94 U/L (14-36); BLOOD UREA NITROGEN 13 mg/dL (7-17); CALCIUM 8.6 mg/dl (8.6-10.4); GFR NON-AFRICAN AMERICAN > 60
[2018-05-14 11:33] LABS: B-TYPE NATRIURETIC PEPTIDE 301 pg/mL (0-900); CK-MB 3.07 ng/mL (0.0-3.38)
--- NOTE | 2018-05-14 11:57 | RAD ---
Date of service: 05/14/2018 PROCEDURE: CHEST RADIOGRAPH, 1 VIEW HISTORY: SOB COMPARISON: None available. FINDINGS: LUNGS: The lungs are clear. PLEURA: No pneumothorax or pleural fluid seen. CARDIOVASCULAR: There is severe cardiomegaly. Status post CABG. OSSEOUS STRUCTURES: No significant abnormalities. VISUALIZED UPPER ABDOMEN: Normal. OTHER FINDINGS: None. IMPRESSION: Severe cardiomegaly. Status post CABG findings. No acute findings.
[2018-05-14 12:13] LABS: SQUAMOUS EPITHIAL < 1 /hpf (0-5); URINE BACTERIA RARE (<OCC); URINE BILIRUBIN NEGATIVE (NEGATIVE); URINE BLOOD NEGATIVE (NEGATIVE); URINE CLARITY Clear (Clear); URINE COLOR Straw (YELLOW); URINE GLUCOSE (UA) NORMAL (Normal); URINE LEUKOCYTE ESTERASE NEG Leu/uL (Negative); URINE PROTEIN NEGATIVE (NEGATIVE); URINE UROBILINOGEN NORMAL mg/dL (0.2-1.0)
[2018-05-14] MEDS: Oxycodone/Acetaminophen 5/325 mg Tab PO PRN (23:12)
[2018-05-15] MEDS ORDERED: Albuterol-Ipratrop 3 mg / 0.5 (3 ml) UD IH PRN (00:48)
[2018-05-15] MEDS ORDERED: Albuterol HFA 90 mcg/actuation (8 g) IH PRN ×2 (00:48)
[2018-05-15] MEDS ORDERED: guaiFENesin DM 100 mg-10 mg/5 ml UD PO PRN (01:16)
[2018-05-15] MEDS ORDERED: Atropine-Diphenoxylate 0.025-2.5 mg Tab PO PRN (01:16)
--- NOTE | 2018-05-15 02:11 | HP ---
HISTORY OF PRESENT ILLNESS: This is a 62-year-old female with longstanding psychiatric history, coronary artery disease, status post coronary artery bypass graft, type 2 diabetes mellitus, hypertension, COPD, presented to the emergency room with symptoms of low back pain with left lower abdominal pain that radiates to the left lower extremity. The patient has been having this pain on and off for some time and it has become continuous lately. The patient denied to have any history of trauma or fall. The patient stated that she had similar episodes before. The patient was diagnosed previously with renal colic also. PAST MEDICAL HISTORY: As above. FAMILY HISTORY: Not contributory. SOCIAL HISTORY: No history of smoking, EtOH, or substance abuse. REVIEW OF SYSTEMS: Other review of system is negative. ALLERGY: NO KNOWN ALLERGY. MEDICATIONS: As per MAR, reviewed and ordered. PHYSICAL EXAMINATION: GENERAL: The patient is in bed, not in any cardiopulmonary distress. VITAL SIGNS: Blood pressure 177/54, temperature 97.9, respiratory rate 18, and pulse 70. HEENT: Pupils equal, reactive to light. Normal-appearing mucosa of the conjunctivae, oropharynx and nasal membrane mucosa. NECK: Supple. No JVD. No carotid bruit. No lymph node. No thyromegaly. CARDIOPULMONARY: PMI not localized. S1, S2. No additional sounds. CHEST: Lungs, bilateral symmetrical expansion. Good air exchange. No rales, no rhonchi. ABDOMEN: Normoactive bowel sounds. No tenderness. No organomegaly. No masses. EXTREMITIES: No cyanosis, no clubbing, no edema. PLANT PROTECTION GUARD: Alert, awake, oriented x2. No neurological deficit could be appreciated. LABORATORY DATA: Blood work done in emergency room was unremarkable as well as a chest x-ray except for the elevated liver enzymes. ASSESSMENT: 1. 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 2. Elevated liver enzymes secondary to non-alcoholic steatosis hepatitis. 3. Type 2 diabetes mellitus. PLAN: We will do CAT scan without contrast to rule out any kidney stones, and if this is negative, we will order CAT scan with p.o. contrast to rule out colitis, and if both negative, we will give the patient physical therapy and muscle relaxant as this is likely secondary to degenerative spine disease with radicular pain. Resume the patient's home medications and Accu-Cheks with insulin coverage. Sebastian Olmstead MD [facility] # [id number]
[2018-05-15] MEDS: (Novolog) Insulin Aspart, Recombinant 100 u/ml 10 ml vial SC SCH ×4 (08:23→21:48)
[2018-05-15] MEDS ORDERED: Ergocalciferol 50,000 Intl Units Cap PO SCH (10:00)
[2018-05-15] MEDS: Oxycodone/Acetaminophen 5/325 mg Tab PO PRN (10:49)
[2018-05-15] MEDS: Enoxaparin 40 mg Syringe SC SCH (10:50)
--- NOTE | 2018-05-15 12:22 | CT ---
Date of service: 05/15/2018 PROCEDURE: CT Abdomen and Pelvis HISTORY: Left abdomen pain COMPARISON: Comparison made with prior CT scan of the abdomen and pelvis dated 11/10/2017 TECHNIQUE: Contiguous axial images of the abdomen and pelvis performed without oral or intravenous contrast material.. Coronal and Sagittal reformats generated. Radiation dose: Total exam DLP = 1116.37 mGy-cm. This CT exam was performed using one or more of the following dose reduction techniques: Automated exposure control, adjustment of the mA and/or kV according to patient size, and/or use of iterative reconstruction technique. The the the FINDINGS: LOWER THORAX: Median sternotomy changes. Heart size is mildly enlarged. No significant pericardial effusion. Small hiatal hernia. There appears to be some mild atelectasis and or scarring in the left lung base/lingular region what may also represent some minimal pleural thickening right posterior lateral sulcus. Lung bases otherwise clear without infiltrate effusion or basilar pneumothorax. LIVER: Liver is mildly enlarged measuring approximately 21.5 cm in CC dimension. No obvious hepatic mass collection or calcification. GALLBLADDER AND BILE DUCTS: Gallbladder is not visualized with certainty and may have been resected however clinical correlation with surgical history recommended. PANCREAS: The pancreas appears slightly atrophic and fatty replaced. No pancreatic masses collections or calcifications. SPLEEN: Unenhanced spleen exhibits normal size and attenuation pattern without mass collection or calcification. ADRENALS: There are no adrenal lesions. KIDNEYS AND URETERS: Unremarkable. No stone or hydronephrosis. Re demonstrated is an approximately 16 x 7.9 mm triangular-shaped nonobstructing calculus within the upper/mid pole collecting system right kidney.. There is a punctate calcifications seen in the lower pole collecting system right kidney. No other renal calculi. No evidence of hydronephrosis. BLADDER: Urinary bladder is incompletely distended which may in part account for slight thick-walled appearance. REPRODUCTIVE: Uterus appears slightly prominent in size for this age group. APPENDIX: Normal appendix. BOWEL: Evaluation of the bowel is somewhat limited due to the lack of oral contrast material. Stomach is distended with food debris liquid and air. Visualized loops of small bowel exhibit normal contour and caliber. No evidence acute mechanical small bowel obstruction. Stool and air seen throughout the large bowel. PERITONEUM: Unremarkable. No fluid collection. No free air. LYMPH NODES: There are scattered small retroperitoneal lymph nodes nonspecific. VASCULATURE: Unremarkable. No aortic aneurysm. BONES: Moderate multilevel degenerative spondylosis of the lower thoracic and lumbar spine. OTHER FINDINGS: None. IMPRESSION: Prominent 16 mm nonobstructing calculus upper/mid pole collecting system right kidney. There also a punctate calcification lower pole collecting system. Prominent uterus. Hepatomegaly as above. See above discussion for additional details and findings.
[2018-05-15] MEDS ORDERED: Glucagon Recombinant 1 mg Inj IM PRN (13:26)
[2018-05-15] MEDS ORDERED: Dextrose 50% SYRINGE Inj (50 ml) IV PRN (13:26)
[2018-05-15] MEDS ORDERED: POLYETHYLENE GLYCOL 3350 17 GM/Dose PACKET PO ONE (14:00)
[2018-05-15] MEDS ORDERED: Iohexol 240 (50 ml) PO ONE (15:00)
--- NOTE | 2018-05-15 15:34 | CARD ---
APPROVED REPORT Date of service: 05/14/2018 EKG Measurement Heart [id number] <Conclusion> Normal sinus rhythm Left axis deviation Septal infarct, age undetermined Abnormal ECG
[2018-05-15] MEDS ORDERED: Iodixanol 320 MG/ML 100 ML BOTTLE IV ONE (16:57)
[2018-05-15] MEDS: (Novolog Mix 70/30) Insulin Aspart/Insulin Aspar 100 units/ml SC SCH (17:14)
--- NOTE | 2018-05-15 17:58 | CT ---
Date of service: 05/15/2018 PROCEDURE: CT Abdomen and Pelvis with contrast HISTORY: Right lower quadrant pain, constant. COMPARISON: May 15, 2018 CT abdomen pelvis performed 10:10. Pelvic ultrasound performed 04/18/2013. TECHNIQUE: Intravenous contrast dose: 100 cc Visipaque 320. Radiation dose: Total exam DLP = 1141.96 mGy-cm. This CT exam was performed using one or more of the following dose reduction techniques: Automated exposure control, adjustment of the mA and/or kV according to patient size, and/or use of iterative reconstruction technique. FINDINGS: LOWER THORAX: Unremarkable. LIVER: Hepatic steatosis. No focal masses. No intrahepatic bile duct dilatation or perihepatic ascites. GALLBLADDER AND BILE DUCTS: Status post cholecystectomy. No abnormality is seen in the gallbladder fossa. PANCREAS: Unremarkable. No gross lesion or ductal dilatation. SPLEEN: Unremarkable. ADRENALS: Unremarkable. No mass. KIDNEYS AND URETERS: Stable calculi in the right kidney. No evidence of obstructive uropathy. VASCULATURE: Unremarkable. No aortic aneurysm. BOWEL: Constipation without fecal impaction or obstruction. APPENDIX: Normal appendix. PERITONEUM: Unremarkable. No free fluid. No free air. LYMPH NODES: Unremarkable. No enlarged lymph nodes. BLADDER: Unremarkable. REPRODUCTIVE: Is enlarged heterogeneous and anteverted uterus similar findings identified on the prior ultrasound 04/18/2013. BONES: No acute fracture. OTHER FINDINGS: None. IMPRESSION: No acute/significant interval changes compared to the prior recent CT scan. Stable findings with respect to the uterus. Additional benign and/or incidental findings described above.
[2018-05-15] MEDS ORDERED: (Lantus) Insulin Glargine, Recombinant SC SCH (22:00)
--- NOTE | 2018-05-15 22:07 | PN ---
DATE: 05/15/2018 SUBJECTIVE: The patient is seen today, 05/15/2018. She is still complaining of left lower quadrant abdominal pain. PHYSICAL EXAMINATION: VITAL SIGNS: Blood pressure 137/67, temperature 97.5, respiratory rate 20, and pulse 59. HEENT: Pupils equal, reactive to light. Normal-appearing mucosa of the conjunctivae, oropharynx and nasal membrane mucosa. NECK: Supple. No JVD. No carotid bruit. No lymph node. No thyromegaly. CARDIOPULMONARY: PMI not localized. S1, S2. No additional sounds. CHEST: Lungs, bilateral symmetrical expansion. Good air exchange. No rales, no rhonchi. ABDOMEN: Normoactive bowel sounds. There is tenderness in the left lower quadrant. No organomegaly. No masses. EXTREMITIES: No cyanosis, no clubbing, no edema. CHILD DEVELOPMENT DIRECTOR: Alert, awake, oriented x2. No neurological deficit could be appreciated. LABORATORY DATA: CAT scan of the abdomen without contrast was done and it showed a prominent 60 mm nonobstructing calculus, upper mid pole collecting system, right kidney. There are also punctate calcifications in the lower pole collecting system. ASSESSMENT: 1. Left lower quadrant pain with tenderness, rule out colitis. 2. Type 2 diabetes mellitus. 3. Hypertension. 4. Chronic obstructive pulmonary disease. 5. Coronary artery disease, status post coronary artery bypass graft. PLAN: We will do a CAT scan of the abdomen and pelvis with p.o. and IV contrast, and if it is negative, we will do MRI of the lumbosacral spine. Sebastian Olmstead MD
[2018-05-16] MEDS: (Novolog) Insulin Aspart, Recombinant 100 u/ml 10 ml vial SC SCH ×2 (07:55→12:43)
[2018-05-16 09:44] VITALS: PULSE 62
[2018-05-16] MEDS: (Novolog Mix 70/30) Insulin Aspart/Insulin Aspar 100 units/ml SC SCH (10:49)
[2018-05-16] MEDS: Enoxaparin 40 mg Syringe SC SCH (11:01)
[2018-05-16] MEDS ORDERED: Influenza Vaccine 60 MCG/0.5 ML SYR (3 yr & up) IM ONE (12:00)
[2018-05-16 13:35] LABS: ALB/GLOB RATIO 1.4 (1.0-2.1); ALBUMIN 3.7 g/dL (3.5-5.0); ALT/SGPT 75 U/L (9-52); AST/SGOT 61 U/L (14-36); BILIRUBIN,DIRECT 0.4 mg/dL (0.0-0.4); BLOOD UREA NITROGEN 20 mg/dL (7-17); CALCIUM 8.7 mg/dl (8.6-10.4); GFR NON-AFRICAN AMERICAN > 60
--- NOTE | 2018-05-16 14:45 | CP.PCM.PN ---
Subjective - Date & Time of Evaluation Date of Evaluation: 05/16/18 Time of Evaluation: 12:15 - Subjective Subjective: GOVERNMENT INSTRUCTOR NOTES Patient seen today ,abdominal pain improved , denies any N/V/D , + BM No overnight events reported by RN Objective - Vital Signs/Intake and Output Vital Signs (last 24 hours): Temp Pulse Resp BP Pulse Ox 98.0 F 62 20 156/78 H 99 05/16/18 07:00 05/16/18 09:38 05/16/18 07:00 05/16/18 10:59 05/16/18 07:00 Intake and Output: 05/16/18 05/16/18 06:59 18:59 Intake Total 120 Balance 120 - Medications Medications: Current Medications Albuterol/Ipratropium (Duoneb 3 Mg/0.5 Mg (3 Ml) Ud) 3 ml IH RQ6 PRN PRN Reason: Shortness of Breath Aspirin (Ecotrin) 81 mg PO DAILY [facility] Last Admin: 05/16/18 10:39 Dose: 81 mg Clopidogrel Bisulfate (Plavix) 75 mg PO DAILY [facility] Last Admin: 05/16/18 10:39 Dose: 75 mg Dextrose (Dextrose 50% Inj) 0 ml IV STAT PRN; Protocol PRN Reason: Hypoglycemia Protocol Dextrose (Glutose 15) 15 gm PO ONCE PRN; Protocol PRN Reason: Hypoglycemia Protocol Diphenoxylate HCl/Atropine (Lomotil 0.025-2.5 Mg Tablet) 1 tab PO BID PRN PRN Reason: Diarrhea Docusate Sodium (Colace) 100 mg PO BID [facility] Last Admin: 05/16/18 10:39 Dose: 100 mg Enoxaparin Sodium (Lovenox) 40 mg SC DAILY [facility] Last Admin: 05/16/18 11:01 Dose: 40 mg Ergocalciferol (Drisdol 50,000 Intl Units Cap) 1 cap PO QWK [facility] Last Admin: 05/15/18 10:50 Dose: 1 cap Escitalopram Oxalate (Lexapro) 20 mg PO DAILY [facility] Last Admin: 05/16/18 10:40 Dose: 20 mg Fenofibrate (Tricor) 145 mg PO DAILY [facility] Last Admin: 05/16/18 10:40 Dose: 145 mg Furosemide (Lasix) 20 mg PO DAILY [facility] Last Admin: 05/16/18 10:59 Dose: 20 mg Gabapentin (Neurontin) 100 mg PO TID [facility] Last Admin: 05/16/18 11:03 Dose: 100 mg Glucagon (Glucagen Diagnostic Kit) 1 mg IM STAT PRN; Protocol PRN Reason: Hypoglycemia Protocol Guaifenesin/Dextromethorphan (Robitussin Dm) 5 ml PO BID PRN PRN Reason: Cough Hydralazine HCl (Apresoline) 50 mg PO TID [facility] Last Admin: 05/16/18 10:59 Dose: 50 mg Dextrose (Dextrose 5% In Water 1000 Ml) 1,000 mls @ 0 mls/hr IV .Q0M PRN; Protocol PRN Reason: Hypoglycemia Protocol Insulin Aspart (Novolog Mix 70/30 (70/30 Units/Ml)) 20 units SC ACBD [facility] Last Admin: 05/16/18 10:49 Dose: 20 u Insulin Aspart (Novolog) 0 unit SC [facility]; Protocol Last Admin: 05/16/18 12:43 Dose: 4 unit Insulin Glargine (Lantus) 40 unit SC [facility] Last Admin: 05/15/18 21:49 Dose: 40 unit Loratadine (Claritin) 10 mg PO DAILY [facility] Last Admin: 05/16/18 10:59 Dose: 10 mg Losartan Potassium (Cozaar) 50 mg PO DAILY [facility] Last Admin: 05/16/18 11:00 Dose: 50 mg Oxcarbazepine (Trileptal) 150 mg PO TID [facility] Last Admin: 05/16/18 10:40 Dose: 150 mg Oxycodone/Acetaminophen (Percocet 5/325 Mg Tab) 1 tab PO Q6H PRN PRN Reason: pain Stop: 05/17/18 23:02 Last Admin: 05/15/18 10:49 Dose: 1 tab Pioglitazone HCl (Actos) 15 mg PO DAILY [facility] Last Admin: 05/16/18 10:39 Dose: 15 mg Pneumococcal Polyvalent Vaccine (Pneumovax 23 Vaccine) 0.5 ml IM .ONCE ONE Stop: 05/17/18 12:01 Rosuvastatin Calcium (Crestor) 10 mg PO [facility] Last Admin: 05/15/18 21:47 Dose: 10 mg - Labs Labs: 05/14/18 11:00 05/16/18 12:58 Assessment and Plan - Assessment and Plan (Free Text) Assessment: A/P 62 y/o female with history of Asthma, CAD, CHF, Anxiety, Hypercholesterolemia and DM admitted with left sided abdominal pain. labs and vss - reviewed , no significant changes noted CT abdomen and pelvis repeated po and IV contrast- No acute/significant interval changes compared to the prior recent CT scan. D/w with Dr. Olmstead stable for discharge home today and f/u with Dr. Olmstead office in 1 week Discharge plan discussed with patient who understands and agrees with plan patient instructed to returns to ED if symptoms returns
[2018-05-16 16:28] VITALS: BP 129/62; RESP 18; TEMP 97.8
[2018-05-17 05:06] VITALS: O2SAT 96
--- NOTE | 2018-05-17 11:17 | DS ---
REASON FOR ADMISSION: This is a 62-year-old female with a history of multiple medical problems, who was admitted for lower abdominal pain. COURSE OF HOSPITALIZATION: The patient was admitted to medical floor. She had a CAT scan without contrast done that ruled out any stone. The patient also had a CAT scan with p.o. and IV contrast that ruled out any acute pathology. Pain was believed to be radiated from the back, and the patient was given pain medications and ordered physical therapy and discharged to home in a stable condition. FINAL DIAGNOSES: 1. Lower abdominal pain, likely referred pain from the back. 2. Hypertension. 3. Type 2 diabetes mellitus. 4. Coronary artery disease, status post coronary artery bypass graft. [facility] MD Ishan
[2018-05-17] MEDS ORDERED: Pneumococcal 23-Valent Vaccine IM ONE (12:00)
== END 2018-05-16 16:52 | disposition home or self-care (01) ==
LOC: C.ER 09:45 → C.9E 13:17 → C.6T 18:41
PROVIDERS: ADMIT Internal Medicine; ATTEND Internal Medicine
DX: R10.9 Unspecified abdominal pain (principal); I11.0 Hypertensive heart disease with heart failure; E11.9 Type 2 diabetes mellitus without complications; I25.10 Atherosclerotic heart disease of native coronary artery without angina pectoris; J44.9 Chronic obstructive pulmonary disease, unspecified; K70.10 Alcoholic hepatitis without ascites; K76.0 Fatty (change of) liver, not elsewhere classified; E78.00 Pure hypercholesterolemia, unspecified; F41.9 Anxiety disorder, unspecified; I50.9 Heart failure, unspecified; J45.901 Unspecified asthma with (acute) exacerbation
CPT/HCPCS: 36415; 71045; 74176; 74177; 80048; 80053; 80076; 81001; 82550; 82553; 82948; 83036; 83880; 84484; 85025; 93005; 99285; G0378; J1650; Q9966; Q9967

== ENCOUNTER 2018-07-03 10:02 | Emergency (ER) | payer MEDICARE, MEDICAID ==
[2018-07-03 10:09] VITALS: BMI 42.2
[2018-07-03 10:13] VITALS: TEMP 97.8
[2018-07-03] MEDS ORDERED: Sodium Chloride 0.9% 1,000 ML IV ONE (11:23)
[2018-07-03] MEDS ORDERED: Sodium Chloride 0.9% 1,000 ML ONE (11:40)
[2018-07-03 11:43] LABS: BASO % 0.4 % (0.0-2.0); EOS # 0.2 K/uL (0.0-0.7); EOS % 2.5 % (0.0-4.0); LYMPH # 2.9 K/uL (1.0-4.3); LYMPH % 38.9 % (20.0-40.0); MEAN CELL VOLUME 81.5 fL (81.0-99.0); MEAN CORPUSCULAR HEMOGLOBIN 27.2 pg (27.0-31.0); MEAN CORPUSCULAR HGB CONC 33.4 g/dL (33.0-37.0); MEAN PLATELET VOLUME 7.9 fL (7.2-11.7); MONO # 0.6 K/uL (0.0-0.8); MONO % 8.3 % (0.0-10.0); NEUT # 3.8 K/uL (1.8-7.0); NEUT % 49.9 % (50.0-75.0); RBC 4.77 Mil/uL (3.80-5.20); RED CELL DISTRIBUTION WIDTH 16.4 % (11.5-14.5); WHITE BLOOD COUNT 7.6 K/uL (4.8-10.8)
[2018-07-03 11:54] LABS: ALB/GLOB RATIO 1.5 (1.0-2.1); ALBUMIN 4.4 g/dL (3.5-5.0); ALT/SGPT 46 U/L (9-52); AST/SGOT 43 U/L (14-36); BLOOD UREA NITROGEN 17 mg/dL (7-17); CALCIUM 8.8 mg/dl (8.6-10.4); GFR NON-AFRICAN AMERICAN > 60; LIPASE 92 U/L (23-300)
--- NOTE | 2018-07-03 12:04 | C.PDOC ---
History Of Present Illness 62 y/o female presents to the ED complaining of diarrhea and a dry cough for 1 week. Associated with intermittent dizziness, subjective fever, chills, and upper abdominal discomfort. Patient reports the diarrhea is constant, lasting all day. She denies any dysuria, urinary frequency, nausea, vomiting, or recent travel. No sick contacts. Patient reports decreased appetite. Prior surgical history is significant for cholecystectomy. Time Seen by Provider: 07/03/18 11:11 Chief Complaint (Nursing): Abdominal Pain History Per: Patient History/Exam Limitations: no limitations Onset/Duration Of Symptoms: Days (x7) Current Symptoms Are (Timing): Still Present Past Medical History Reviewed: Historical Data, Nursing Documentation, Vital Signs Vital Signs: Last Vital Signs Temp 97.8 F 07/03/18 10:11 Pulse 73 07/03/18 10:11 Resp 22 07/03/18 10:27 BP 135/78 07/03/18 10:11 Pulse Ox 96 07/03/18 10:11 - Medical History PMH: Anemia, Anxiety, Asthma, Bronchitis, CAD, CHF, COPD, Depression, Diabetes, Gall Bladder Disease, HTN, Hypercholesterolemia, Hyperlipidemia, Pneumonia Denies: Hepatitis, HIV, Chronic Kidney Disease, Seizures, Sexually Transmitted Disease Surgical History: CABG (per old chart, pt denies, but uncertain of type of past open heart surgery), Cholecystectomy - [facility] Procedures DILATION OF 1 COR ART WITH 2 DRUG-ELUT, PERC APPROACH (10/05/16) GROUP PSYCHOTHERAPY (10/28/15) INDIVIDUAL PSYCHOTHERAPY, COGNITIVE-BEHAVIORAL (10/28/15) INTRODUCE OTH THROMBOLYTIC IN CORONARY ART, PERC (10/05/16) INTRODUCTION OF ANTI-INFLAM INTO RESP TRACT, VIA OPENING (07/16/16) MEASURE OF CARDIAC SAMPL & PRESSURE, L HEART, PERC APPROACH (10/05/16) NEBULIZER THERAPY (02/16/15) PLAIN RADIOGRAPHY OF L INT MAMM GRAFT USING OTH CONTRAST (05/17/15) PLAIN RADIOGRAPHY OF MULT COR ART USING OTH CONTRAST (10/05/16) PLAIN RADIOGRAPHY OF RIGHT AND LEFT HEART USING OTH CONTRAST (05/17/15) PLAIN RADIOGRAPHY OF THORACIC AORTA USING OTHER CONTRAST (05/17/15) Family History: States: CAD - Social History Hx Tobacco Use: No Hx Alcohol Use: No Hx Substance Use: No - Immunization History Hx Tetanus Toxoid Vaccination: No Hx Influenza Vaccination: Yes (04/2018) Hx Pneumococcal Vaccination: Yes Review Of Systems Constitutional: Positive for: Fever (subjective), Chills Cardiovascular: Negative for: Chest Pain Respiratory: Positive for: Cough. Negative for: Shortness of Breath Gastrointestinal: Positive for: Abdominal Pain (upper), Diarrhea, Other (De creased appetite). Negative for: Nausea, Vomiting, Hematochezia Genitourinary: Negative for: Dysuria, Frequency, Incontinence Neurological: Positive for: Dizziness. Negative for: Weakness, Numbness Physical Exam - Physical Exam Appears: Non-toxic, No Acute Distress Skin: Warm, Dry Head: Atraumatic, Normacephalic Eye(s): bilateral: Normal Inspection, PERRL, EOMI Oral Mucosa: Moist Neck: Normal ROM, Supple Chest: Symmetrical Cardiovascular: Rhythm Regular, No Murmur Respiratory: Normal Breath Sounds, No Accessory Muscle Use, No Rhonchi, No Wheezing Gastrointestinal/Abdominal: Bowel Sounds (positive), Soft, No Tenderness, No Guarding, No Rebound, Other (Obese abdomen, large healed abdominal scar over right upper abdomen) Back: Normal Inspection, No CVA Tenderness, No Vertebral Tenderness Extremity: Bilateral: Normal Color And Temperature, Normal ROM Neurological/Psych: Oriented x3, Normal Speech ED Course And Treatment - Laboratory Results Result Diagrams: 07/03/18 11:23 07/03/18 11:39 O2 Sat by Pulse Oximetry: 96 (RA) Pulse Ox Interpretation: Normal - Other Rad CXR X-Ray: Read By Radiologist Interpretation: FINDINGS: LUNGS: Poor inspiration with low lung volumes, crowded bronchovascular markings and minor bibasilar atelectasis. PLEURA: No significant pleural effusion identified, no pneumothorax apparent. CARDIOVASCULAR: Appears to be minor aortic atherosclerotic calcification present. Cardiomegaly.. No pulmonary vascular congestion. OSSEOUS STRUCTURES: No significant abnormalities. VISUALIZED UPPER ABDOMEN: Normal. OTHER FINDINGS: None. IMPRESSION: Poor inspiration with low lung volumes, crowded bronchovascular markings and minor bibasilar atelectasis. Medical Decision Making Medical Decision Making: Initial Plan: --CMP --Lipase --CBC --UA --Chest x-ray --IV fluids x 1 bolus --Zofran 4 mg IV --Pepcid 20 mg IV --Reassess On re-exam, the patient reports improvement of symptoms. Lungs are CTA, heart is RRR, abdomen is soft, non-tender and tolerating PO well. Ambulatory in the ED with steady gait. Follow up with the medical doctor within 1-2 days. Return if worsened. Disposition - Disposition Referrals: Sebastian Olmstead MD [Staff Provider] - Disposition: HOME/ ROUTINE Disposition Time: 13:39 Condition: STABLE Additional Instructions: Follow up with the medical doctor within 1-2 days. Return if worsened. Prescriptions: Ondansetron ODT [Zofran ODT] 1 odt PO BID PRN #6 odt PRN Reason: Nausea/Vomiting Instructions: Viral Syndrome (DC), Diarrhea in Adolescents and Adults Forms: [employer] (Malay) - Clinical Impression Clinical Impression: Viral syndrome, Diarrhea - PA / CROWN PRESSER / 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 - Scribe Statement The provider has reviewed the documentation as recorded by the Andresibdenae Do All medical record entries made by the Scribe were at my direction and p ersonally dictated by me. I have reviewed the chart and agree that the record accurately reflects my personal performance of the history, physical exam, medical decision making, and the department course for this patient. I have also personally directed, reviewed, and agree with the discharge instructions and disposition.
--- NOTE | 2018-07-03 12:11 | RAD ---
Date of service: 07/03/2018 HISTORY: abd pain COMPARISON: Comparison made with chest radiograph 05/14/2018. FINDINGS: LUNGS: Poor inspiration with low lung volumes, crowded bronchovascular markings and minor bibasilar atelectasis. PLEURA: No significant pleural effusion identified, no pneumothorax apparent. CARDIOVASCULAR: Appears to be minor aortic atherosclerotic calcification present. Cardiomegaly.. No pulmonary vascular congestion. OSSEOUS STRUCTURES: No significant abnormalities. VISUALIZED UPPER ABDOMEN: Normal. OTHER FINDINGS: None. IMPRESSION: Poor inspiration with low lung volumes, crowded bronchovascular markings and minor bibasilar atelectasis..
[2018-07-03 12:39] VITALS: RESP 20
[2018-07-03 13:14] LABS: SQUAMOUS EPITHIAL 1 /hpf (0-5); URINE BILIRUBIN NEGATIVE (NEGATIVE); URINE BLOOD NEGATIVE (NEGATIVE); URINE CLARITY Clear (Clear); URINE COLOR Yellow (YELLOW); URINE GLUCOSE (UA) NORMAL (Normal); URINE LEUKOCYTE ESTERASE TRACE Leu/uL (Negative); URINE PROTEIN NEGATIVE (NEGATIVE); URINE UROBILINOGEN NORMAL mg/dL (0.2-1.0)
[2018-07-03 13:58] VITALS: BP 155/57; PULSE 62
[2018-07-04 13:00] VITALS: O2SAT 96
== END 2018-07-03 14:05 | disposition home or self-care (01) ==
LOC: C.ER 10:02
DX: B34.9 Viral infection, unspecified (principal); R19.7 Diarrhea, unspecified; F41.9 Anxiety disorder, unspecified; I25.10 Atherosclerotic heart disease of native coronary artery without angina pectoris; I11.0 Hypertensive heart disease with heart failure; I50.9 Heart failure, unspecified; J44.9 Chronic obstructive pulmonary disease, unspecified; E11.9 Type 2 diabetes mellitus without complications; E78.00 Pure hypercholesterolemia, unspecified; Z90.49 Acquired absence of other specified parts of digestive tract; Z87.891 Personal history of nicotine dependence
CPT/HCPCS: 71045; 80053; 81001; 83690; 85025; 96361; 96374; 96375; 99285; J2405; J7030

== ENCOUNTER 2018-07-25 13:13 | Inpatient (IN) | payer MEDICARE, MEDICAID ==
[2018-07-25 13:14] VITALS: BMI 42.2
[2018-07-25] MEDS ORDERED: Sodium Chloride 0.9% 500 ML IV ONE ×2 (13:42→14:19)
[2018-07-25] MEDS ORDERED: Albuterol-Ipratrop 3 mg / 0.5 (3 ml) UD INH STA ×2 (13:44→22:11)
--- NOTE | 2018-07-25 14:01 | C.PDOC ---
History Of Present Illness 62 y/o female with a PMHx of asthma DM, CHF, hypercholesterolemia, s/p CABG, presents to the ED with complaints of asthma exacerbation for the past couple of days. Patient is complaining of nasal congestion, sore throat, and ear pain for 4 weeks. Per triage, patient reported having cough and cold symptoms for 1 week, with some SOB. Patient also reports having recurrent vomiting and diarrhea for the past month. States she vomited yesterday and this morning, and has had continuous diarrhea and abdominal pain. Of note, blood pressure is elevated on arrival, 195/82. Patient reports compliance with taking her meds. Time Seen by Provider: 07/25/18 13:26 Chief Complaint (Nursing): Cough, Cold, Congestion History Per: Patient History/Exam Limitations: no limitations Onset/Duration Of Symptoms: Days Current Symptoms Are (Timing): Still Present Past Medical History Reviewed: Historical Data, Nursing Documentation, Vital Signs Vital Signs: Last Vital Signs Temp 98.5 F 07/25/18 13:29 Pulse 70 07/25/18 13:29 Resp 18 07/25/18 13:29 BP 195/82 H 07/25/18 13:29 Pulse Ox 96 07/25/18 13:29 - Medical History PMH: Anemia, Anxiety, Asthma, Bronchitis, CAD, CHF, COPD, Depression, Diabetes, Gall Bladder Disease, HTN, Hypercholesterolemia, Hyperlipidemia, Pneumonia Denies: Hepatitis, HIV, Chronic Kidney Disease, Seizures, Sexually Transmitted Disease Surgical History: CABG (per old chart, pt denies, but uncertain of type of past open heart surgery), Cholecystectomy - [facility] Procedures DILATION OF 1 COR ART WITH 2 DRUG-ELUT, PERC APPROACH (10/05/16) GROUP PSYCHOTHERAPY (10/28/15) INDIVIDUAL PSYCHOTHERAPY, COGNITIVE-BEHAVIORAL (10/28/15) INTRODUCE OTH THROMBOLYTIC IN CORONARY ART, PERC (10/05/16) INTRODUCTION OF ANTI-INFLAM INTO RESP TRACT, VIA OPENING (07/16/16) MEASURE OF CARDIAC SAMPL & PRESSURE, L HEART, PERC APPROACH (10/05/16) NEBULIZER THERAPY (02/16/15) PLAIN RADIOGRAPHY OF L INT MAMM GRAFT USING OTH CONTRAST (05/17/15) PLAIN RADIOGRAPHY OF MULT COR ART USING OTH CONTRAST (10/05/16) PLAIN RADIOGRAPHY OF RIGHT AND LEFT HEART USING OTH CONTRAST (05/17/15) PLAIN RADIOGRAPHY OF THORACIC AORTA USING OTHER CONTRAST (05/17/15) Family History: States: CAD - Social History Hx Tobacco Use: No Hx Alcohol Use: No Hx Substance Use: No - Immunization History Hx Tetanus Toxoid Vaccination: No Hx Influenza Vaccination: Yes (04/2018) Hx Pneumococcal Vaccination: Yes Review Of Systems Except As Marked, All Systems Reviewed And Found Negative. Constitutional: Negative for: Fever, Chills ENT: Positive for: Ear Pain, Nose Congestion, Throat Pain Cardiovascular: Negative for: Chest Pain Respiratory: Positive for: Cough, Shortness of Breath, Wheezing Gastrointestinal: Positive for: Vomiting, Abdominal Pain, Diarrhea Genitourinary: Negative for: Dysuria, Hematuria Skin: Negative for: Rash Neurological: Negative for: Weakness, Numbness Physical Exam - Physical Exam Appears: Non-toxic, No Acute Distress Skin: Normal Color, Warm, Dry Head: Atraumatic, Normacephalic Eye(s): bilateral: Normal Inspection, PERRL, EOMI Oral Mucosa: Moist Throat: Erythema (mild pharyngeal erythema), No Exudate, Other (Uvula is midline) Neck: Normal ROM, Supple Chest: Symmetrical Cardiovascular: Rhythm Regular, No Murmur, No JVD Respiratory: No Accessory Muscle Use, Rales (bibasilar), No Wheezing Gastrointestinal/Abdominal: Soft, Tenderness (diffuse tenderness), No Distention, No Guarding, No Rebound Extremity: Bilateral: Atraumatic, Normal Color And Temperature Pulses: Left Dorsalis Pedis: Normal, Right Dorsalis Pedis: Normal Neurological/Psych: Oriented x3, Normal Speech ED Course And Treatment - Laboratory Results Result Diagrams: 07/25/18 14:11 07/25/18 14:11 ECG: Interpreted By Me, Viewed By Me ECG Rhythm: Sinus Rhythm Interpretation Of ECG: Left axis deviation, T inversions in leads 1 and avL Rate From EC O2 Sat by Pulse Oximetry: 96 (RA) Pulse Ox Interpretation: Normal Medical Decision Making Medical Decision Making: Impression: Acute gastroenteritis, Asthma exacerbation Plan: - Labs - EKG - Chest x-ray - Duoneb 3 ml INH - Decadron 10 mg IVP - IV fluids, 500 cc - CT Abd/Pelvis with PO&IV contrast Patient given 25 mg PO hydralazine in the ER. Disposition - Disposition Disposition: HOSPITALIZED Disposition Time: 19:04 Condition: FAIR - Clinical Impression Clinical Impression: Hypertensive urgency, Asthma, Gastroenteritis - Scribe Statement The provider has reviewed the documentation as recorded by the Andresibe Adilene Do Provider Attestation: All medical record entries made by the Andresibe were at my direction and personally dictated by me. I have reviewed the chart and agree that the record accurately reflects my personal performance of the history, physical exam, medical decision making, and the department course for this patient. I have also personally directed, reviewed, and agree with the discharge instructions and disposition.
[2018-07-25] MEDS ORDERED: Albuterol-Ipratrop 3 mg / 0.5 (3 ml) UD ONE (14:02)
[2018-07-25] MEDS ORDERED: Iohexol 240 (50 ml) PO ONE (14:11)
[2018-07-25] MEDS ORDERED: Iohexol 240 (50 ml) ONE (14:18)
[2018-07-25 14:23] LABS: BASO # 0.1 K/uL (0.0-0.2); BASO % 0.9 % (0.0-2.0); EOS # 0.1 K/uL (0.0-0.7); EOS % 1.9 % (0.0-4.0); HEMOGLOBIN 11.9 g/dL (11.0-16.0); LYMPH # 2.8 K/uL (1.0-4.3); LYMPH % 39.4 % (20.0-40.0); MEAN CELL VOLUME 82.2 fL (81.0-99.0); MEAN CORPUSCULAR HEMOGLOBIN 27.3 pg (27.0-31.0); MEAN CORPUSCULAR HGB CONC 33.2 g/dL (33.0-37.0); MEAN PLATELET VOLUME 7.9 fL (7.2-11.7); MONO # 0.7 K/uL (0.0-0.8); MONO % 9.1 % (0.0-10.0); NEUT # 3.5 K/uL (1.8-7.0); NEUT % 48.7 % (50.0-75.0); RBC 4.37 Mil/uL (3.80-5.20); RED CELL DISTRIBUTION WIDTH 16.6 % (11.5-14.5); WHITE BLOOD COUNT 7.2 K/uL (4.8-10.8)
[2018-07-25 14:30] LABS: ALB/GLOB RATIO 1.4 (1.0-2.1); ALBUMIN 4.2 g/dL (3.5-5.0); ALT/SGPT 40 U/L (9-52); AST/SGOT 51 U/L (14-36); BLOOD UREA NITROGEN 16 mg/dL (7-17); CALCIUM 8.6 mg/dl (8.6-10.4); GFR NON-AFRICAN AMERICAN > 60
[2018-07-25] MEDS ORDERED: Labetalol 25mg/5ml Syringe IVP STA (15:11)
[2018-07-25] MEDS ORDERED: Labetalol 5mg/ml (4ml) ONE (15:18)
[2018-07-25] MEDS ORDERED: Iodixanol 320 MG/ML 100 ML BOTTLE IV ONE ×2 (15:35→16:01)
--- NOTE | 2018-07-25 16:28 | RAD ---
Date of service: 07/25/2018 PROCEDURE: CHEST RADIOGRAPH, 1 VIEW HISTORY: SOB COMPARISON: 07/03/2018 FINDINGS: LUNGS: Clear. PLEURA: No pneumothorax or pleural fluid seen. CARDIOVASCULAR: Mild cardiomegaly. Sternotomy wires. No congestive change. No atherosclerotic calcification of the thoracic aorta. OSSEOUS STRUCTURES: No significant abnormalities. VISUALIZED UPPER ABDOMEN: Normal. OTHER FINDINGS: None. IMPRESSION: Mild cardiomegaly.
--- NOTE | 2018-07-25 16:56 | CT ---
Date of service: 07/25/2018 PROCEDURE: CT Abdomen and Pelvis with contrast HISTORY: abdominal pain COMPARISON: 05/15/2018 TECHNIQUE: Contrast dose: 100 mL Visipaque 320 Radiation dose: Total exam DLP = 1225.61 mGy-cm. This CT exam was performed using one or more of the following dose reduction techniques: Automated exposure control, adjustment of the mA and/or kV according to patient size, and/or use of iterative reconstruction technique. FINDINGS: LOWER THORAX: Mild cardiomegaly. No infiltrate/effusion. Sternotomy wires. LIVER: Unremarkable. No gross lesion or ductal dilatation. GALLBLADDER AND BILE DUCTS: Nonvisualized gallbladder, presumed status post cholecystectomy. PANCREAS: Unremarkable. No gross lesion or ductal dilatation. SPLEEN: Unremarkable. ADRENALS: Unremarkable. No mass. KIDNEYS AND URETERS: Nonobstructing 11 mm mid right renal calculus, unchanged. No left renal calculus. No renal mass. No hydronephrosis. VASCULATURE: Unremarkable. No aortic aneurysm. There is atherosclerotic calcification of the abdominal aorta BOWEL: Unremarkable. No obstruction. No gross mural thickening. APPENDIX: Normal appendix. PERITONEUM: Unremarkable. No free fluid. No free air. LYMPH NODES: Unremarkable. No enlarged lymph nodes. BLADDER: Unremarkable. REPRODUCTIVE: Uterus significant for rounded low attenuation centrally within the uterus, approximately 6.2 cm in diameter. This is grossly unchanged from 05/15/2018. Transabdominal pelvic ultrasound examination of 06/24/2018 was reportedly indeterminate. Recommend correlation with transvaginal pelvic ultrasound examination or magnetic resonance imaging. Rule out hydro colitis. Rule out endometrial neoplasm. BONES: No acute fracture. OTHER FINDINGS: None. IMPRESSION: No evidence of bowel obstruction. Large central rounded low-attenuation within the uterus. Nonspecific. Correlate with transvaginal pelvic ultrasound. Nonobstructing 11 mm right renal calculus. No other acute abnormality.
[2018-07-25 17:13] LABS: SQUAMOUS EPITHIAL 4 /hpf (0-5); URINE BILIRUBIN NEGATIVE (NEGATIVE); URINE BLOOD 1+ (NEGATIVE); URINE CLARITY Clear (Clear); URINE COLOR Straw (YELLOW); URINE GLUCOSE (UA) NORMAL (Normal); URINE LEUKOCYTE ESTERASE NEG Leu/uL (Negative); URINE PROTEIN NEGATIVE (NEGATIVE); URINE UROBILINOGEN NORMAL mg/dL (0.2-1.0)
--- NOTE | 2018-07-25 19:16 | CP.PCM.CON ---
History of Present Illness - History of Present Illness History of Present Illness: Chief complaint: Elevated blood pressure HPI: 62-year-old female with a history of his psychotic history, CAD, status post CABG, diabetes, hypertension, COPD came to the emergency room today with complaining of shortness of breath, leg swelling as well as abdominal pain. In the emergency room patient was evaluated. She was also noted to have elevated blood pressure. She did not take her medications today. Patient was given multiple medications to control the blood pressure, the blood pressure is currently 180/60. Patient is comfortable now. She is not in any distress. Less shortness of breath noted. She denies any chest pain. Past medical history: As noted Family history noncontributory Patient is a non-smoker nonalcoholic. Review of systems noted from the chart On examination: Patient is now lying down on the bed, eating her dinner She is not in any distress. She is talking with the family members. Chest good air entry noted Regular heart sounds Abdomen soft nontender. Extremities edema bilaterally in the legs noted. Repeat blood pressure is 168/70 Patient's labs reviewed Nonspecific CT scan of the abdomen also nonspecific. Assessment and recommendation: 62-year-old female with a history of multiple medical history including CAD status post CABG diabetes hypertension COPD admitted to the hospital now with nonspecific symptoms. Patient is now having some uncontrolled high blood pressure. Which can be managed medically. Patient does not need to be in the intensive care unit. Continue to monitor, start her oral medication. Cardiology evaluation may be needed. If there is any worsening symptoms call ICU thank Past Patient History - Infectious Disease Hx of Infectious Diseases: None - Past Medical History & Family History Past Medical History?: Yes - Past Social History Smoking Status: Former Smoker - CARDIAC Hx Congestive Heart Failure: Yes Hx Hypercholesterolemia: Yes Hx Hypertension: Yes - PULMONARY Hx Asthma: Yes Hx Bronchitis: Yes Hx Chronic Obstructive Pulmonary Disease (COPD): Yes Hx Pneumonia: Yes - NEUROLOGICAL Hx Seizures: No - HEENT Hx HEENT Problems: No - RENAL Hx Chronic Kidney Disease: No - ENDOCRINE/METABOLIC Hx Endocrine Disorders: Yes Hx Diabetes Mellitus Type 2: Yes - HEMATOLOGICAL/ONCOLOGICAL Hx Anemia: Yes Hx Human Immunodeficiency Virus (HIV): No - INTEGUMENTARY Hx Dermatological Problems: No - MUSCULOSKELETAL/RHEUMATOLOGICAL Hx Musculoskeletal Disorders: Yes Hx Falls: Yes - GASTROINTESTINAL Hx Gall Bladder Disease: Yes - GENITOURINARY/GYNECOLOGICAL Hx Sexually Transmitted Disorders: No - PSYCHIATRIC Hx Anxiety: Yes Hx Depression: Yes Hx Substance Use: No - SURGICAL HISTORY Hx Cholecystectomy: Yes Hx Coronary Artery Bypass Graft: Yes (per old chart, pt denies, but uncertain of type of past open heart surgery) - ANESTHESIA Hx Anesthesia: Yes Hx Anesthesia Reactions: No Hx Malignant Hyperthermia: No Meds Allergies/Adverse Reactions: Allergies Allergy/AdvReac Type Severity Reaction Status Date / Time No Known Allergies Allergy Verified 07/03/18 10:09 Results - Vital Signs Recent Vital Signs: Last Vital Signs Temp 98 F 07/25/18 15:16 Pulse 74 07/25/18 19:05 Resp 16 07/25/18 19:05 BP 180/63 H 07/25/18 19:05 Pulse Ox 100 07/25/18 19:05 - Labs Result Diagrams: 07/25/18 14:11 07/25/18 14:11 Labs: Laboratory Results - last 24 hr 07/25/18 07/25/18 07/25/18 14:11 14:11 16:57 WBC 7.2 RBC 4.37 Hgb 11.9 Hct 35.9 MCV 82.2 MCH 27.3 MCHC 33.2 RDW 16.6 H Plt Count 298 MPV 7.9 Neut % (Auto) 48.7 L Lymph % (Auto) 39.4 Dare % (Auto) 9.1 Eos % (Auto) 1.9 Baso % (Auto) 0.9 Neut # (Auto) 3.5 Lymph # (Auto) 2.8 Dare # (Auto) 0.7 Eos # (Auto) 0.1 Baso # (Auto) 0.1 Sodium 136 Potassium 4.4 Chloride 104 Carbon Dioxide 24 Anion Gap 13 BUN 16 Creatinine 0.8 Est GFR ( Amer) > 60 Est GFR (Non-Af Amer) > 60 Random Glucose 168 H D Calcium 8.6 Total Bilirubin 0.5 AST 51 H ALT 40 Alkaline Phosphatase 41 Troponin I < 0.0120 Total Protein 7.2 Albumin 4.2 Globulin 3.0 Albumin/Globulin Ratio 1.4 Urine Color Straw Urine Clarity Clear Urine pH 7.0 Ur Specific Addison 1.017 Urine Protein Negative Urine Glucose (UA) Normal Urine Ketones Negative Urine Blood 1+ H Urine Nitrate Negative Urine Bilirubin Negative Urine Urobilinogen Normal Ur Leukocyte Esterase Neg Urine WBC (Auto) 7 H Urine RBC (Auto) 2 Ur Squamous Epith Cells 4
[2018-07-25] MEDS ORDERED: Albuterol HFA 90 mcg/actuation (8 g) IH PRN (22:08)
[2018-07-25] MEDS ORDERED: guaiFENesin DM 100 mg-10 mg/5 ml UD PO PRN (22:08)
[2018-07-26] MEDS: (Novolog) Insulin Aspart, Recombinant 100 u/ml 10 ml vial SC SCH ×4 (08:22→22:54)
[2018-07-26] MEDS: Albuterol-Ipratrop 3 mg / 0.5 (3 ml) UD INH SCH ×3 (08:44→19:55)
[2018-07-26] MEDS: Omega-3-Acid Ethyl Esters 1 GM Cap PO SCH ×2 (09:06→19:33)
[2018-07-26 18:26] VITALS: RESP 20
--- NOTE | 2018-07-26 23:56 | HP ---
HISTORY OF PRESENT ILLNESS: The patient is a 62-year-old female with a longstanding psychiatric history, presented to emergency room with symptoms of abdominal pain and diarrhea of two days' duration. The patient was evaluated in the emergency room and she was also found to have uncontrolled hypertension. Subsequently, the patient was admitted for further management. The patient denied to have any sick contacts and denied to have any fever or chills. Positive symptoms of cough and wheezing. The patient has been taking bronchodilator inhalers. The patient had intensive care unit evaluation during the emergency room stay for uncontrolled hypertension and she was not found a candidate for admission to ICU. Subsequently, the patient was admitted to medical floor for further management. REVIEW OF SYSTEMS: Other review of systems is negative. ALLERGIES: NO KNOWN ALLERGY. MEDICATIONS: Reviewed and ordered as per MAR. PAST MEDICAL HISTORY: Type 2 diabetes mellitus; hypertension; COPD; coronary artery disease, status post coronary artery bypass graft; diabetic neuropathy; urinary calculi; degenerative spine disease. FAMILY HISTORY: Not contributory. SOCIAL HISTORY: No history of smoking, EtOH or substance abuse. PHYSICAL EXAMINATION GENERAL: The patient is in bed, not in any cardiopulmonary distress. VITAL SIGNS: Blood pressure 165/84, temperature 98.3, respiratory rate 20 and pulse 66. HEENT: Pupils equal and reactive to light. Normal-appearing mucosa of the conjunctivae, oropharynx and nasal membrane mucosa. NECK: Supple. No JVD. No carotid bruit. No lymph node. No thyromegaly. CHEST AND LUNGS: Bilateral symmetrical expansion. Good air exchange. No rales, no rhonchi. CARDIOVASCULAR SYSTEM: PMI not localized. S1, S2. No additional sounds. ABDOMEN: Normoactive bowel sounds. No tenderness. No organomegaly. No masses. EXTREMITIES: No cyanosis, no clubbing, no edema. CENTRAL NERVOUS SYSTEM: Alert, awake, oriented x2. No neurological deficit could be appreciated. ASSESSMENT: 1. Gastroenteritis/colitis. 2. Uncontrolled hypertension. 3. Type 2 diabetes mellitus. 4. Coronary artery disease, status post coronary artery bypass graft. PLAN: Continue current antihypertensive medications. Blood pressure is better controlled. Advance diet as tolerated. IV hydration. Accu-Cheks with insulin coverage as needed. Sebastian Olmstead MD [facility] # [id number]
[2018-07-27] MEDS: Albuterol-Ipratrop 3 mg / 0.5 (3 ml) UD INH SCH ×2 (08:00→13:50)
[2018-07-27] MEDS: (Novolog) Insulin Aspart, Recombinant 100 u/ml 10 ml vial SC SCH ×2 (08:13→12:20)
[2018-07-27] MEDS: Omega-3-Acid Ethyl Esters 1 GM Cap PO SCH (09:11)
--- NOTE | 2018-07-27 14:32 | CP.PCM.PN ---
Subjective - Date & Time of Evaluation Date of Evaluation: 07/27/18 Time of Evaluation: 14:31 Objective - Vital Signs/Intake and Output Vital Signs (last 24 hours): Temp Pulse Resp BP Pulse Ox 98.2 F 66 20 159/77 H 97 07/27/18 08:50 07/27/18 13:47 07/27/18 08:50 07/27/18 13:47 07/27/18 08:50 - Medications Medications: Current Medications Albuterol (Ventolin Hfa 90 Mcg/Actuation (8 G)) 2 puff IH Q6H PRN PRN Reason: Shortness of Breath Last Admin: 07/26/18 19:55 Dose: 2 puff Albuterol/Ipratropium (Duoneb 3 Mg/0.5 Mg (3 Ml) Ud) 3 ml INH RQ6 [facility] Last Admin: 07/27/18 08:00 Dose: 3 ml Aspirin (Ecotrin) 81 mg PO DAILY [facility] Last Admin: 07/27/18 09:11 Dose: 81 mg Clopidogrel Bisulfate (Plavix) 75 mg PO DAILY [facility] Last Admin: 07/27/18 09:11 Dose: 75 mg Escitalopram Oxalate (Lexapro) 20 mg PO DAILY [facility] Last Admin: 07/27/18 09:10 Dose: 20 mg Fenofibrate (Tricor) 145 mg PO DAILY [facility] Last Admin: 07/27/18 09:11 Dose: 145 mg Gabapentin (Neurontin) 100 mg PO TID [facility] Last Admin: 07/27/18 13:48 Dose: 100 mg Guaifenesin/Dextromethorphan (Robitussin Dm) 5 ml PO BID PRN PRN Reason: Cough Heparin Sodium (Porcine) (Heparin) 5,000 units SC Q12 [facility] Last Admin: 07/27/18 09:12 Dose: 5,000 units Hydralazine HCl (Apresoline) 50 mg PO TID [facility] Last Admin: 07/27/18 13:48 Dose: 50 mg Insulin Aspart (Novolog) 0 unit SC ACHS [facility]; Protocol Last Admin: 07/27/18 12:20 Dose: 4 units Loratadine (Claritin) 10 mg PO HS PRN PRN Reason: allergies Losartan Potassium (Cozaar) 100 mg PO DAILY [facility] Last Admin: 07/27/18 09:21 Dose: 100 mg Metformin HCl (Glucophage) 1,000 mg PO BID [facility] [id number] Ethyl Esters (Lovaza) 2 gm PO BID [facility] Last Admin: 07/27/18 09:11 Dose: 2 gm Oxcarbazepine (Trileptal) 150 mg PO TID [facility] Last Admin: 07/27/18 13:48 Dose: 150 mg Rosuvastatin Calcium (Crestor) 10 mg PO HS [facility] Last Admin: 07/26/18 23:08 Dose: 10 mg Sitagliptin Phosphate (Januvia) 100 mg PO DAILY [facility] Last Admin: 07/27/18 09:11 Dose: 100 mg - Labs Labs: 07/25/18 14:11 07/25/18 14:11 Assessment and Plan - Assessment and Plan (Free Text) Assessment: FOLLOW UP WITH DR MUIR IN HIS OFFICE -----CALL FOR APPOINTMENT CONTINUE HOME MEDICATION NEW PRESCRIPTION GIVEN [place] INCREASE TO 100 MG ACTIVITY TOLERATED CALL DR MUIR OR GO TO THE EMERGENCY ROOM IF SYMPTOM RETURN OR WORSENING
[2018-07-27 15:46] VITALS: PULSE 68
[2018-07-27 16:03] VITALS: BP 146/73; TEMP 97.2
[2018-07-27 20:18] VITALS: O2SAT 96
--- NOTE | 2018-07-27 20:54 | CARD ---
APPROVED REPORT Date of service: 07/25/2018 EKG Measurement Heart [id number] <Conclusion> Normal sinus rhythm ST & T wave abnormality, consider lateral ischemia Abnormal ECG
== END 2018-07-27 16:29 | disposition home or self-care (01) | DRG 392 ==
LOC: C.ER 13:13 → C.6T 20:02
PROVIDERS: ADMIT Internal Medicine; ATTEND Internal Medicine
DX: K52.9 Noninfective gastroenteritis and colitis, unspecified (principal); J45.901 Unspecified asthma with (acute) exacerbation; E11.40 Type 2 diabetes mellitus with diabetic neuropathy, unspecified; E78.00 Pure hypercholesterolemia, unspecified; I11.0 Hypertensive heart disease with heart failure; I16.0 Hypertensive urgency; I25.10 Atherosclerotic heart disease of native coronary artery without angina pectoris; I50.9 Heart failure, unspecified; J44.9 Chronic obstructive pulmonary disease, unspecified; Z87.01 Personal history of pneumonia (recurrent); Z87.891 Personal history of nicotine dependence; Z95.1 Presence of aortocoronary bypass graft; Z90.49 Acquired absence of other specified parts of digestive tract; Z87.442 Personal history of urinary calculi; Z79.4 Long term (current) use of insulin

== ENCOUNTER 2018-08-03 15:14 | Observation (INO) | payer MEDICARE, MEDICAID ==
[2018-08-03 15:14] VITALS: BMI 42.2
--- NOTE | 2018-08-03 15:59 | C.PDOC ---
History Of Present Illness The patient is a 62 year old female who was evaluated in the ED on 07/25 and admitted for viral gastroenteritis and uncontrolled hypertension and diabetes. Patient was discharged home, but states the vomiting and diarrhea has continued. Patient states she has been experiencing generalized abdominal pain that is worse on her left side for the past week. Patient also reports sore throat and chest discomfort. She has not taken anything for her symptoms. Patient denies fever, chills, or trouble breathing at this time. Patient underwent a CT scan on 07/25, which did not show any focal changes. Patients past medical history includes coronary artery disease and surgical history includes cholecystectomy. Time Seen by Provider: 08/03/18 15:38 Chief Complaint (Nursing): Abdominal Pain History Per: Patient History/Exam Limitations: no limitations Onset/Duration Of Symptoms: Days Current Symptoms Are (Timing): Still Present Location Of Pain/Discomfort: Diffuse, Other (left-sided ) Quality Of Discomfort: "Pain" Associated Symptoms: Nausea, Vomiting, Diarrhea. denies: Fever, Chills Additional History Per: Patient Abnormal Vaginal Bleeding: No Past Medical History Reviewed: Historical Data, Nursing Documentation, Vital Signs Vital Signs: Last Vital Signs Temp 98.2 F 08/03/18 15:21 Pulse 67 08/03/18 15:21 Resp 18 08/03/18 15:21 BP 196/79 H 08/03/18 15:21 Pulse Ox 98 08/03/18 15:21 - Medical History PMH: Anemia, Anxiety, Asthma, Bronchitis, CAD, CHF, COPD, Depression, Diabetes, Gall Bladder Disease, HTN, Hypercholesterolemia, Hyperlipidemia, Pneumonia Denies: Hepatitis, HIV, Chronic Kidney Disease, Seizures, Sexually Transmitted Disease Surgical History: CABG (per old chart, pt denies, but uncertain of type of past open heart surgery), Cholecystectomy - [facility] Procedures DILATION OF 1 COR ART WITH 2 DRUG-ELUT, PERC APPROACH (10/05/16) GROUP PSYCHOTHERAPY (10/28/15) INDIVIDUAL PSYCHOTHERAPY, COGNITIVE-BEHAVIORAL (10/28/15) INTRODUCE OTH THROMBOLYTIC IN CORONARY ART, PERC (10/05/16) INTRODUCTION OF ANTI-INFLAM INTO RESP TRACT, VIA OPENING (07/16/16) MEASURE OF CARDIAC SAMPL & PRESSURE, L HEART, PERC APPROACH (10/05/16) NEBULIZER THERAPY (02/16/15) PLAIN RADIOGRAPHY OF L INT MAMM GRAFT USING OTH CONTRAST (05/17/15) PLAIN RADIOGRAPHY OF MULT COR ART USING OTH CONTRAST (10/05/16) PLAIN RADIOGRAPHY OF RIGHT AND LEFT HEART USING OTH CONTRAST (05/17/15) PLAIN RADIOGRAPHY OF THORACIC AORTA USING OTHER CONTRAST (05/17/15) Family History: States: CAD - Social History Hx Tobacco Use: No Hx Alcohol Use: No Hx Substance Use: No - Immunization History Hx Tetanus Toxoid Vaccination: No Hx Influenza Vaccination: Yes (04/2018) Hx Pneumococcal Vaccination: Yes Review Of Systems Constitutional: Negative for: Fever, Chills ENT: Positive for: Throat Pain Cardiovascular: Positive for: Other (chest discomfort ) Respiratory: Negative for: Shortness of Breath Gastrointestinal: Positive for: Vomiting, Abdominal Pain (generalized, worse on left side ), Diarrhea Physical Exam - Physical Exam Appears: Non-toxic, No Acute Distress, Other (morbidly obese ) Skin: Normal Color, Warm, Dry Head: Atraumatic, Normacephalic Eye(s): bilateral: Normal Inspection Ear(s): Bilateral: Normal Nose: Normal, No Discharge Oral Mucosa: Moist Throat: Normal, No Erythema, No Exudate Neck: Supple Chest: Symmetrical, No Deformity, No Tenderness Cardiovascular: Rhythm Regular, No Murmur Respiratory: Normal Breath Sounds, No Rales, No Rhonchi, No Wheezing Gastrointestinal/Abdominal: Bowel Sounds (very quiet ), Soft, Tenderness (diff use ), No Guarding, No Rebound, Other (rotund abdomen ) Extremity: Normal ROM, Capillary Refill (less than 2 seconds ) Neurological/Psych: Oriented x3, Normal Speech, Normal Cognition ED Course And Treatment - Laboratory Results Result Diagrams: 08/03/18 16:23 08/03/18 16:23 O2 Sat by Pulse Oximetry: 98 (on RA ) Pulse Ox Interpretation: Normal Progress Note: Bloodwork, urinalysis, EKG, and Obstructive Series abdomen ordered and reviewed. - Physician Consult Information Outcome Of Conversation: Case discussed with Dr Olmstead. Patient is complaining of persistent abdominal, chest and throat pain and states that she cannot possible go home. Will admit for observation. Dr Mccoy to admit. Disposition - Disposition Disposition: HOSPITALIZED Disposition Time: 20:22 Condition: STABLE - POA Present On Arrival: None - Clinical Impression Clinical Impression: Abdominal pain, Chest pain - Scribe Statement The provider has reviewed the documentation as recorded by the Scribe (Ranjana Melendez) Provider Attestation: All medical record entries made by the Scribe were at my direction and personally dictated by me. I have reviewed the chart and agree that the record accurately reflects my personal performance of the history, physical exam, medical decision making, and the department course for this patient. I have also personally directed, reviewed, and agree with the discharge instructions and disposition.
[2018-08-03 16:26] LABS: BASO # 0.1 K/uL (0.0-0.2); BASO % 0.8 % (0.0-2.0); EOS # 0.1 K/uL (0.0-0.7); EOS % 1.6 % (0.0-4.0); HEMOGLOBIN 12.1 g/dL (11.0-16.0); LYMPH % 36.9 % (20.0-40.0); MEAN PLATELET VOLUME 7.7 fL (7.2-11.7); MONO # 0.6 K/uL (0.0-0.8); MONO % 7.7 % (0.0-10.0); NEUT # 4.3 K/uL (1.8-7.0); RBC 4.47 Mil/uL (3.80-5.20); RED CELL DISTRIBUTION WIDTH 16.4 % (11.5-14.5); WHITE BLOOD COUNT 8.1 K/uL (4.8-10.8)
[2018-08-03 16:28] LABS: SQUAMOUS EPITHIAL 3 /hpf (0-5); URINE BACTERIA OCC (<OCC); URINE BILIRUBIN NEGATIVE (NEGATIVE); URINE BLOOD 1+ (NEGATIVE); URINE CLARITY Clear (Clear); URINE COLOR Yellow (YELLOW); URINE GLUCOSE (UA) 2+ mg/dL (Normal); URINE LEUKOCYTE ESTERASE TRACE Leu/uL (Negative); URINE PROTEIN 1+ mg/dL (NEGATIVE); URINE UROBILINOGEN NORMAL mg/dL (0.2-1.0)
[2018-08-03 16:46] LABS: ALB/GLOB RATIO 1.5 (1.0-2.1); ALBUMIN 4.3 g/dL (3.5-5.0); ALT/SGPT 39 U/L (9-52); AST/SGOT 44 U/L (14-36); BLOOD UREA NITROGEN 13 mg/dL (7-17); CALCIUM 8.4 mg/dl (8.6-10.4); GFR NON-AFRICAN AMERICAN > 60; LIPASE 168 U/L (23-300)
--- NOTE | 2018-08-03 17:42 | RAD ---
Date of service: 08/03/2018 PROCEDURE: Radiographs of the chest and abdomen (obstructive series) HISTORY: abd pain COMPARISON: None available. TECHNIQUE: AP radiograph of the chest, with upright and supine radiographs of the abdomen. FINDINGS: CHEST: Cardiomegaly. Median sternotomy wires; inferior-most one appears discontinuous. Ectatic aorta. No focal consolidation, significant pleural effusion, or definite pneumothorax. Please note that chest x-ray has limited sensitivity for the detection of pulmonary masses. ABDOMEN AND PELVIS: Nonspecific bowel gas pattern. No definite free air. Hyperdense material within the right upper quadrant consistent with external artifact related to heat pad. No acute osseous abnormality is detected. IMPRESSION: Cardiomegaly. Hyperdense material within the right upper quadrant consistent with external artifact related to heat pad. Additional findings as above. Case discussed with Dr. Watson on 08/03/18 at 5:35 p.m.
[2018-08-03] MEDS ORDERED: Sodium Chloride 0.9% 1,000 ML IV SCH (21:15)
[2018-08-03] MEDS ORDERED: Albuterol HFA 90 mcg/actuation (8 g) IH PRN (21:44)
--- NOTE | 2018-08-03 21:46 | CP.PCM.HP ---
<Lacy Weber - Last Filed: 08/04/18 00:17> History of Present Illness - History of Present Illness History of Present Illness: CC: Abdominal and chest pain HPI: Patient is a 62 year old female with pmhx of CAD, HTN, CHF, DM, COPD, HLD, anxiety and depression who presents to the ED today with complaints of acute onset LUQ/left flank abdominal pain that radiates into her back, as well as epi gastric and left sided chest pain radiating to left arm. Patient reports while walking today, she developed acute SOB accompanied by abdominal and chest pain. Patient reports resolution of pulmonary symptoms with asthma medication administration; however abdominal/chest pain persisted. Pt also reports recent GI illness for which she was treated by her primary. Reports headache, nausea, paresthesias to lower extremity. PMD: Ishan PMHx: CAD, HTN, CHF, DM, COPD, HLD, anxiety and depression PSHx: CABG, cholecystectomy Allergies: denies SocHx: Denies FamHx: HTN, heart disease, HLD, DM Present on Admission - Present on Admission Any Indicators Present on Admission: No Review of Systems - Constitutional Constitutional: Headache - EENT Eyes: Blurred Vision (chronic) Nose/Mouth/Throat: Sore Throat, Neck Pain - Cardiovascular Cardiovascular: Chest Pain, Leg Edema - Respiratory Respiratory: Cough, Dyspnea - Gastrointestinal Gastrointestinal: Abdominal Pain, Nausea - Neurological Neurological: Numbness (plantar feet B/L), Paresthesias (lower extremity right>left), Weakness - Psychiatric Psychiatric: Confusion Past Patient History - Infectious Disease Hx of Infectious Diseases: None - Past Medical History & Family History Past Medical History?: Yes - Past Social History Smoking Status: Never Smoked - CARDIAC Hx Congestive Heart Failure: Yes Hx Hypercholesterolemia: Yes Hx Hypertension: Yes - PULMONARY Hx Asthma: Yes Hx Bronchitis: Yes Hx Chronic Obstructive Pulmonary Disease (COPD): Yes Hx Pneumonia: Yes - NEUROLOGICAL Hx Seizures: No - HEENT Hx HEENT Problems: No - RENAL Hx Chronic Kidney Disease: No - ENDOCRINE/METABOLIC Hx Endocrine Disorders: Yes Hx Diabetes Mellitus Type 2: Yes - HEMATOLOGICAL/ONCOLOGICAL Hx Anemia: Yes Hx Human Immunodeficiency Virus (HIV): No - INTEGUMENTARY Hx Dermatological Problems: No - MUSCULOSKELETAL/RHEUMATOLOGICAL Hx Musculoskeletal Disorders: Yes Hx Falls: No - GASTROINTESTINAL Hx Gall Bladder Disease: Yes - GENITOURINARY/GYNECOLOGICAL Hx Sexually Transmitted Disorders: No - PSYCHIATRIC Hx Anxiety: Yes Hx Depression: Yes Hx Substance Use: No - SURGICAL HISTORY Hx Cholecystectomy: Yes Hx Coronary Artery Bypass Graft: Yes (per old chart, pt denies, but uncertain of type of past open heart surgery) - ANESTHESIA Hx Anesthesia: Yes Hx Anesthesia Reactions: No Hx Malignant Hyperthermia: No Meds Allergies/Adverse Reactions: Allergies Allergy/AdvReac Type Severity Reaction Status Date / Time No Known Allergies Allergy Verified 07/03/18 10:09 Physical Exam - Constitutional Appears: Non-toxic, No Acute Distress - Head Exam Head Exam: ATRAUMATIC, NORMAL INSPECTION, NORMOCEPHALIC - Eye Exam Eye Exam: EOMI, Normal appearance - ENT Exam ENT Exam: Mucous Membranes Moist, Normal Exam - Neck Exam Neck exam: Positive for: Normal Inspection - Respiratory Exam Respiratory Exam: NORMAL BREATHING PATTERN. absent: Respiratory Distress - Cardiovascular Exam Cardiovascular Exam: REGULAR RHYTHM. absent: Tachycardia - GI/Abdominal Exam GI & Abdominal Exam: Normal Bowel Sounds, Soft. absent: Distended Additional comments: obese abdomen - Extremities Exam Extremities exam: Positive for: normal inspection, pedal edema. Negative for: calf tenderness - Neurological Exam Neurological exam: Alert Additional comments: Patient presents with intermittent slurred speech. Facial movement symmetrical, no focal deficit. B/L equal strength, UE/LE - Psychiatric Exam Psychiatric exam: Anxious - Skin Skin Exam: Dry, Intact, Normal Color, Warm Results - Vital Signs Recent Vital Signs: Last Vital Signs Temp 97.1 F L 08/03/18 19:59 Pulse 68 08/03/18 19:59 Resp 20 08/03/18 19:59 BP 181/77 H 08/03/18 19:59 Pulse Ox 98 08/03/18 20:23 - Labs Result Diagrams: 08/03/18 16:23 08/03/18 16:23 Labs: Laboratory Results - last 24 hr 08/03/18 08/03/18 08/03/18 16:04 16:23 16:23 WBC 8.1 RBC 4.47 Hgb 12.1 Hct 36.7 MCV 82.0 MCH 27.0 MCHC 33.0 RDW 16.4 H Plt Count 246 MPV 7.7 Neut % (Auto) 53.0 Lymph % (Auto) 36.9 [place] % (Auto) 7.7 Eos % (Auto) 1.6 Baso % (Auto) 0.8 Neut # (Auto) 4.3 Lymph # (Auto) 3.0 [place] # (Auto) 0.6 Eos # (Auto) 0.1 Baso # (Auto) 0.1 Sodium 134 Potassium 4.3 Chloride 98 Carbon Dioxide 29 Anion Gap 11 BUN 13 Creatinine 0.8 Est GFR ( Amer) > 60 Est GFR (Non-Af Amer) > 60 Random Glucose 143 H Calcium 8.4 L Total Bilirubin 0.4 AST 44 H ALT 39 Alkaline Phosphatase 54 Total Protein 7.1 Albumin 4.3 Globulin 2.9 Albumin/Globulin Ratio 1.5 Lipase 168 Urine Color Yellow Urine Clarity Clear Urine pH 6.0 Ur Specific [place] 1.012 Urine Protein 1+ H Urine Glucose (UA) 2+ H Urine Ketones Negative Urine Blood 1+ H Urine Nitrate Negative Urine Bilirubin Negative Urine Urobilinogen Normal Ur Leukocyte Esterase Trace Urine WBC (Auto) 4 Urine RBC (Auto) 3 Ur Squamous Epith Cells 3 Urine Bacteria Occ H Assessment & Plan - Assessment and Plan (Free Text) Assessment: 62 year old female admitted for evaluation of abdominal pain/chest pain Plan: R/O ACS -EKG showed T wave abnormality consistent with possible lateral ischemia -telemetry -f/u KYLEE x2, negative thus far -ASA 325, plavix Abdominal pain -obstructive series unremarkable -f/u abdominal ultrasound -UA abnormal, f/u urine cx AMS -CT head to rule out acute pathology -f/u urine cx HTN -hypertensive in ED, -resume home meds, losartan -HHD -monitor vitals CAD/CHF -echo October, showed EF of 20-25% HLD -crestor 5mg, tricor DM -accuchecks achs -ISS high dose -continue home gabapentin Asthma -continue home albuterol Anxiety/depression -continue home meds, lexapro Ppx -GI ppx, protonix Discussed with Dr. Mccoy -Lacy Weber, PGY-1 <John Mccoy - Last Filed: 08/04/18 06:31> Results - Vital Signs Recent Vital Signs: Last Vital Signs Temp 97.8 F 08/04/18 04:00 Pulse 58 L 08/04/18 04:00 Resp 20 08/04/18 04:00 BP 185/80 H 08/04/18 04:00 Pulse Ox 96 08/04/18 04:00 - Labs Result Diagrams: 08/03/18 16:23 08/03/18 16:23 Labs: Laboratory Results - last 24 hr 08/03/18 08/03/18 08/03/18 16:04 16:23 16:23 WBC 8.1 RBC 4.47 Hgb 12.1 Hct 36.7 MCV 82.0 MCH 27.0 MCHC 33.0 RDW 16.4 H Plt Count 246 MPV 7.7 Neut % (Auto) 53.0 Lymph % (Auto) 36.9 [place] % (Auto) 7.7 Eos % (Auto) 1.6 Baso % (Auto) 0.8 Neut # (Auto) 4.3 Lymph # (Auto) 3.0 [place] # (Auto) 0.6 Eos # (Auto) 0.1 Baso # (Auto) 0.1 Sodium 134 Potassium 4.3 Chloride 98 Carbon Dioxide 29 Anion Gap 11 BUN 13 Creatinine 0.8 Est GFR ( Amer) > 60 Est GFR (Non-Af Amer) > 60 POC Glucose (mg/dL) Random Glucose 143 H Calcium 8.4 L Total Bilirubin 0.4 AST 44 H ALT 39 Alkaline Phosphatase 54 Total Creatine Kinase CK-MB (Mass) Troponin I Total Protein 7.1 Albumin 4.3 Globulin 2.9 Albumin/Globulin Ratio 1.5 Lipase 168 Urine Color Yellow Urine Clarity Clear Urine pH 6.0 Ur Specific [place] 1.012 Urine Protein 1+ H Urine Glucose (UA) 2+ H Urine Ketones Negative Urine Blood 1+ H Urine Nitrate Negative Urine Bilirubin Negative Urine Urobilinogen Normal Ur Leukocyte Esterase Trace Urine WBC (Auto) 4 Urine RBC (Auto) 3 Ur Squamous Epith Cells 3 Urine Bacteria Occ H 08/03/18 08/03/18 08/04/18 22:50 23:16 04:16 WBC RBC Hgb Hct MCV MCH MCHC RDW Plt Count MPV Neut % (Auto) Lymph % (Auto) [place] % (Auto) Eos % (Auto) Baso % (Auto) Neut # (Auto) Lymph # (Auto) [place] # (Auto) Eos # (Auto) Baso # (Auto) Sodium Potassium Chloride Carbon Dioxide Anion Gap BUN Creatinine Est GFR ( Amer) Est GFR (Non-Af Amer) POC Glucose (mg/dL) 205 H Random Glucose Calcium Total Bilirubin AST ALT Alkaline Phosphatase Total Creatine Kinase 308 H 261 H CK-MB (Mass) 3.13 2.61 Troponin I < 0.0120 < 0.0120 Total Protein Albumin Globulin Albumin/Globulin Ratio Lipase Urine Color Urine Clarity Urine pH Ur Specific [place] Urine Protein Urine Glucose (UA) Urine Ketones Urine Blood Urine Nitrate Urine Bilirubin Urine Urobilinogen Ur Leukocyte Esterase Urine WBC (Auto) Urine RBC (Auto) Ur Squamous Epith Cells Urine Bacteria Assessment & Plan - Date & Time Date: 08/04/18 (I have seen and examined the patient. I agree with the findings and plan of care as documented by Dr. Weber. Patient with chest pain. ROMIx3 with EKG. Aspirin. Plavix. History of hypertension. Continue home meds. Acute alternation of mental status. CT head stat. Abdominal pain. Obstruction series done in ED. Check ultrasound of abdomen. Monitor for acute changes.) Time: 06:29 Attending/Attestation - Attestation I have personally seen and examined this patient.: Yes I have fully participated in the care of the patient.: Yes I have reviewed all pertinent clinical information: Yes
[2018-08-03] MEDS: (Novolin R) Insulin Human Regular 100 units/ml vial SC SCH (23:11)
[2018-08-03 23:50] LABS: CK-MB 3.13 ng/mL (0.0-3.38)
[2018-08-04] MEDS ORDERED: Metoprolol 1 mg/ml Inj IVP ONE (02:57)
[2018-08-04 04:50] VITALS: RESP 20
[2018-08-04 05:01] LABS: CK-MB 2.61 ng/mL (0.0-3.38)
[2018-08-04] MEDS: (Novolin R) Insulin Human Regular 100 units/ml vial SC SCH ×2 (07:56→12:24)
[2018-08-04 08:37] VITALS: TEMP 98.1; O2SAT 99
--- NOTE | 2018-08-04 09:01 | CP.PCM.PN ---
Subjective - Date & Time of Evaluation Date of Evaluation: 08/04/18 Time of Evaluation: 08:59 - Subjective Subjective: PGY-[address] Weiner. Objective - Vital Signs/Intake and Output Vital Signs (last 24 hours): Temp Pulse Resp BP Pulse Ox 98.1 F 59 L 20 178/78 H 99 08/04/18 07:00 08/04/18 07:00 08/04/18 07:00 08/04/18 07:00 08/04/18 07:00 - Medications Medications: Current Medications Albuterol (Ventolin Hfa 90 Mcg/Actuation (8 G)) 2 puff IH Q6H PRN PRN Reason: Shortness of Breath Aspirin (Ecotrin) 81 mg PO DAILY ROSY Clopidogrel Bisulfate (Plavix) 75 mg PO DAILY ROSY Escitalopram Oxalate (Lexapro) 20 mg PO DAILY ROSY Fenofibrate (Tricor) 200 mg PO DAILY ROSY Gabapentin (Neurontin) 100 mg PO TID ROSY Insulin Human Regular (Novolin R) 0 unit SC ACHS [facility]; Protocol Last Admin: 08/04/18 07:56 Dose: 4 u Losartan Potassium (Cozaar) 50 mg PO DAILY ROSY Ondansetron HCl (Zofran Inj) 4 mg IVP Q6 PRN PRN Reason: Nausea/Vomiting Oxcarbazepine (Trileptal) 150 mg PO TID ROSY Pantoprazole Sodium (Protonix Ec Tab) 40 mg PO DAILY ROSY Rosuvastatin Calcium (Crestor) 5 mg PO HS [facility] Last Admin: 08/03/18 23:11 Dose: 5 mg - Labs Labs: 08/03/18 16:23 08/03/18 16:23 Assessment and Plan - Assessment and Plan (Free Text) Plan: 62 year old female admitted for evaluation of abdominal pain/chest pain Plan: R/O ACS -EKG showed T wave abnormality consistent with possible lateral ischemia, no change from previous -telemetry -f/u KYLEE x2, negative thus far -ASA 325, plavix Abdominal pain -obstructive series unremarkable -f/u abdominal ultrasound -UA abnormal, f/u urine cx AMS -CT head to rule out acute pathology -f/u urine cx HTN -hypertensive in ED, 196/79 -resume home meds, losartan -HHD -monitor vitals CAD/CHF -echo October, showed EF of 20-25% HLD -crestor 5mg, tricor DM -accuchecks achs -ISS high dose -continue home gabapentin Asthma -continue home albuterol Anxiety/depression -continue home meds, lexapro Ppx -GI ppx, protonix Discussed with Dr. Weiner -Lisa Rivera, PGY-1
--- NOTE | 2018-08-04 09:32 | CT ---
Date of service: 08/03/2018 PROCEDURE: CT HEAD WITHOUT CONTRAST. HISTORY: AMS COMPARISON: None available. TECHNIQUE: Axial computed tomography images were obtained through the head/brain without intravenous contrast. Radiation dose: Total exam DLP = 1148.99 mGy-cm. This CT exam was performed using one or more of the following dose reduction techniques: Automated exposure control, adjustment of the mA and/or kV according to patient size, and/or use of iterative reconstruction technique. FINDINGS: HEMORRHAGE: No intracranial hemorrhage. BRAIN: Diffuse atrophy with prominence of the ventricles and sulci noted. No mass effect or edema. Intracranial atherosclerosis. Left temporal and parietal lobe encephalomalacia. Please note that MRI with diffusion imaging is more sensitive in the detection of acute ischemic event. VENTRICLES: No hydrocephalus. CALVARIUM: Left-sided temporal craniotomy. PARANASAL SINUSES: Unremarkable as visualized. No significant inflammatory changes. MASTOID AIR CELLS: Unremarkable as visualized. No inflammatory changes. OTHER FINDINGS: None. IMPRESSION: Left temporal parietal encephalomalacia with craniotomy changes. Preliminary impression was provided by [facility].
[2018-08-04] MEDS ORDERED: Pantoprazole 40 mg EC Tab PO SCH (10:00)
[2018-08-04 13:23] VITALS: PULSE 56
[2018-08-04 13:56] VITALS: BP 174/81
--- NOTE | 2018-08-04 13:57 | CP.PCM.DIS ---
Provider - Provider Date of Admission: 08/03/18 20:23 Attending physician: John Mccoy MD Time Spent in preparation of Discharge (in minutes): 35 Diagnosis - Discharge Diagnosis (1) Viral syndrome Status: Acute (2) Chest pain Status: Acute (3) Abdominal pain Status: Acute Hospital Course - Lab Results Lab Results: Most Recent Lab Values WBC 8.1 K/uL (4.8-10.8) 08/03/18 16:23 RBC 4.47 Mil/uL (3.80-5.20) 08/03/18 16:23 Hgb 12.1 g/dL (11.0-16.0) 08/03/18 16:23 Hct 36.7 % (34.0-47.0) 08/03/18 16:23 MCV 82.0 fL (81.0-99.0) 08/03/18 16:23 MCH 27.0 pg (27.0-31.0) 08/03/18 16:23 MCHC 33.0 g/dL (33.0-37.0) 08/03/18 16:23 RDW 16.4 % (11.5-14.5) H 08/03/18 16:23 Plt Count 246 K/uL (130-400) 08/03/18 16:23 MPV 7.7 fL (7.2-11.7) 08/03/18 16:23 Neut % (Auto) 53.0 % (50.0-75.0) 08/03/18 16:23 Lymph % (Auto) 36.9 % (20.0-40.0) 08/03/18 16:23 [place] % (Auto) 7.7 % (0.0-10.0) 08/03/18 16:23 Eos % (Auto) 1.6 % (0.0-4.0) 08/03/18 16:23 Baso % (Auto) 0.8 % (0.0-2.0) 08/03/18 16:23 Neut # (Auto) 4.3 K/uL (1.8-7.0) 08/03/18 16:23 Lymph # (Auto) 3.0 K/uL (1.0-4.3) 08/03/18 16:23 [place] # (Auto) 0.6 K/uL (0.0-0.8) 08/03/18 16:23 Eos # (Auto) 0.1 K/uL (0.0-0.7) 08/03/18 16:23 Baso # (Auto) 0.1 K/uL (0.0-0.2) 08/03/18 16:23 Sodium 134 mmol/L (132-148) 08/03/18 16:23 Potassium 4.3 mmol/L (3.6-5.2) 08/03/18 16:23 Chloride 98 mmol/L (98-107) 08/03/18 16:23 Carbon Dioxide 29 mmol/L (22-30) 08/03/18 16:23 Anion Gap 11 (10-20) 08/03/18 16:23 BUN 13 mg/dL (7-17) 08/03/18 16:23 Creatinine 0.8 mg/dL (0.7-1.2) 08/03/18 16:23 Est GFR ( Amer) > 60 08/03/18 16:23 Est GFR (Non-Af Amer) > 60 08/03/18 16:23 POC Glucose (mg/dL) 192 mg/dL (65-110) H 08/04/18 12:03 Random Glucose 143 mg/dL (65-105) H 08/03/18 16:23 Calcium 8.4 mg/dl (8.6-10.4) L 08/03/18 16:23 Total Bilirubin 0.4 mg/dL (0.2-1.3) 08/03/18 16:23 AST 44 U/L (14-36) H 08/03/18 16:23 ALT 39 U/L (9-52) 08/03/18 16:23 Alkaline Phosphatase 54 U/L (38-126) 08/03/18 16:23 Total Creatine Kinase 232 U/L (30-135) H 08/04/18 11:32 CK-MB (Mass) 2.50 ng/mL (0.0-3.38) 08/04/18 11:32 Troponin I < 0.0120 ng/mL (0.00-0.120) 08/04/18 11:32 Total Protein 7.1 g/dL (6.3-8.3) 08/03/18 16:23 Albumin 4.3 g/dL (3.5-5.0) 08/03/18 16:23 Globulin 2.9 gm/dL (2.2-3.9) 08/03/18 16:23 Albumin/Globulin Ratio 1.5 (1.0-2.1) 08/03/18 16:23 Lipase 168 U/L (23-300) 08/03/18 16:23 Urine Color Yellow (YELLOW) 08/03/18 16:04 Urine Clarity Clear (Clear) 08/03/18 16:04 Urine pH 6.0 (5.0-8.0) 08/03/18 16:04 Ur Specific [place] 1.012 (1.003-1.030) 08/03/18 16:04 Urine Protein 1+ mg/dL (NEGATIVE) H 08/03/18 16:04 Urine Glucose (UA) 2+ mg/dL (Normal) H 08/03/18 16:04 Urine Ketones Negative mg/dL (NEGATIVE) 08/03/18 16:04 Urine Blood 1+ (NEGATIVE) H 08/03/18 16:04 Urine Nitrate Negative (NEGATIVE) 08/03/18 16:04 Urine Bilirubin Negative (NEGATIVE) 08/03/18 16:04 Urine Urobilinogen Normal mg/dL (0.2-1.0) 08/03/18 16:04 Ur Leukocyte Esterase Trace [place]/uL (Negative) 08/03/18 16:04 Urine WBC (Auto) 4 /hpf (0-5) 08/03/18 16:04 Urine RBC (Auto) 3 /hpf (0-3) 08/03/18 16:04 Ur Squamous Epith Cells 3 /hpf (0-5) 08/03/18 16:04 Urine Bacteria Occ (<OCC) H 08/03/18 16:04 - Hospital Course Hospital Course: On admission: Patient is a 62 year old female with pmhx of CAD, HTN, CHF, DM, COPD, HLD, anxiety and depression who presents to the ED today with complaints of acute onset LUQ/left flank abdominal pain that radiates into her back, as well as epigastric and left sided chest pain radiating to left arm. Patient reports while walking today, she developed acute SOB accompanied by abdominal and chest pain. Patient reports resolution of pulmonary symptoms with asthma medication administration; however abdominal/chest pain persisted. Pt also reports recent GI illness for which she was treated by her primary. Reports headache, nausea, paresthesias to lower extremity. Hospital Course: Patient admitted for abdominal pain and chest pain. Patient primarily complaining of sore throat and L ear pain. States she came to ED because her PMD was on vacation. Troponin was neg x3. EKG was unchanged from previous. Abdominal US showed enlarged fatty liver, and no acute abnormality. An abdominal Obstructive series was negative. Abdominal CT on last admission 07/2018: No evidence of bowel obstruction. Large central rounded low-attenuation within the uterus. Nonspecific. Correlate with transvaginal pelvic ultrasound. Nonobstructing 11 mm right renal calculus. No other acute abnormality. Patient is stable for discharge as per Dr. Weiner. Patient is to follow up with her primary care physician within one week of discharge. You may resume your home medications. Drink plenty of fluids. You may take Tylenol OTC for pain. Return to the emergency room if you experience new or worsening symptoms. Discharge Exam - Head Exam Head Exam: ATRAUMATIC, NORMAL INSPECTION, NORMOCEPHALIC - Eye Exam Eye Exam: EOMI, PERRL - ENT Exam ENT Exam: Mucous Membranes Moist Additional comments: TMs normal. Pharynx normal. - Neck Exam Neck exam: Full Rom Additional comments: bilateral submandibular lymphadenopathy - Respiratory Exam Respiratory Exam: Clear to PA & Lateral, NORMAL BREATHING PATTERN. absent: Rales, Rhonchi, Wheezes, Respiratory Distress - Cardiovascular Exam Cardiovascular Exam: REGULAR RHYTHM, +S1, +S2 - GI/Abdominal Exam GI & Abdominal Exam: Normal Bowel Sounds, Soft, Tenderness (To L flank and LLQ). absent: Guarding, Rebound Additional comments: umbilicus off-centered - Neurological Exam Neurological exam: Alert, CN II-XII Intact, Oriented x3 - Psychiatric Exam Psychiatric exam: Normal Mood - Skin Skin Exam: Dry, Normal Color, Warm Discharge Plan - Follow Up Plan Condition: STABLE Disposition: HOME/ ROUTINE Instructions: Chest Pain (DC), Viral Syndrome (DC), Acute Abdominal Pain (DC), Acute Abdominal Pain (GEN) Additional Instructions: Patient is stable for discharge as per Dr. Weiner. Patient is to follow up with her primary care physician within one week of discharge. You may resume your home medications. Drink plenty of fluids. You may take Tylenol OTC for pain. Return to the emergency room if you experience new or worsening symptoms. Referrals: Sebastian Olmstead MD [Staff Provider] -
--- NOTE | 2018-08-04 18:02 | US ---
HISTORY: abdominal pain COMPARISON: CT abdomen and pelvis with contrast performed 07/25/18 TECHNIQUE: Sonographic evaluation of the abdomen. FINDINGS: Examination limited by habitus. LIVER: Measures 19.4 cm in sagittal dimension. Echogenic liver may be seen in setting of hepatic parenchymal disease or fatty infiltration. No focal hepatic mass identified. The main portal vein appears patent with normal directional flow. No intrahepatic bile duct dilatation. GALLBLADDER: Cholecystectomy. COMMON BILE DUCT: Measures 5 mm. PANCREAS: Not well visualized. RIGHT KIDNEY: Measures 11.3 x 4.7 x 4.1 cm. No obstructing calculus or hydronephrosis identified. LEFT KIDNEY: Measures 11.8 x 5.5 x 4.9 cm. No obstructing calculus or hydronephrosis identified. SPLEEN: Measures approximately 10.0 cm. AORTA: Limited views appear unremarkable. IVC: Limited views appear unremarkable. OTHER FINDINGS: None. IMPRESSION: Limited study. Cholecystectomy. Hepatomegaly. Echogenic liver may be seen in setting of hepatic parenchymal disease or fatty infiltration.
== END 2018-08-04 17:00 | disposition home or self-care (01) ==
LOC: C.ER 15:14 → C.9E 20:23 → C.6T 22:04 → C.9E 22:14 → C.6T 22:15
PROVIDERS: ADMIT Family Medicine; ATTEND Family Medicine
DX: A08.4 Viral intestinal infection, unspecified (principal); R07.9 Chest pain, unspecified; R10.9 Unspecified abdominal pain; E11.9 Type 2 diabetes mellitus without complications; E78.00 Pure hypercholesterolemia, unspecified; E78.5 Hyperlipidemia, unspecified; I11.0 Hypertensive heart disease with heart failure; I25.10 Atherosclerotic heart disease of native coronary artery without angina pectoris; I50.9 Heart failure, unspecified; J44.9 Chronic obstructive pulmonary disease, unspecified; K76.0 Fatty (change of) liver, not elsewhere classified; N20.0 Calculus of kidney; Z87.01 Personal history of pneumonia (recurrent); Z90.49 Acquired absence of other specified parts of digestive tract; Z95.1 Presence of aortocoronary bypass graft
CPT/HCPCS: 36415; 70450; 74022; 76700; 80053; 81001; 82948; 83690; 84484; 85025; 87086; 99285; G0378; J7030

== ENCOUNTER 2018-08-10 18:43 | Emergency (ER) | payer MEDICARE, MEDICAID ==
[2018-08-10 18:43] VITALS: BMI 42.2
--- NOTE | 2018-08-10 19:29 | C.PDOC ---
History Of Present Illness 62 year old female presents to the ED c/o generalized body aches and SOB for the past 3 weeks. Patient states she was able to ambulate to her bathroom. Patient speaking in normal sentences. Patient also states her blood sugars have been running over 200. Patient denies fever, chills, nausea, vomit, diarrhea, rash, weakness, numbness. Time Seen by Provider: 08/10/18 19:28 Chief Complaint (Nursing): Shortness Of Breath History Per: Patient History/Exam Limitations: no limitations Onset/Duration Of Symptoms: Days Current Symptoms Are (Timing): Still Present Recent travel outside of the [place]: No Additional History Per: Patient Past Medical History Reviewed: Historical Data, Nursing Documentation, Vital Signs Vital Signs: Last Vital Signs Temp 97.5 F L 08/10/18 19:08 Pulse 87 08/10/18 19:08 Resp 20 08/10/18 19:08 BP 136/84 08/10/18 19:08 Pulse Ox 94 L 08/10/18 19:08 - Medical History PMH: Anemia, Anxiety, Asthma, Bronchitis, CAD, CHF, COPD, Depression, Diabetes, Gall Bladder Disease, HTN, Hypercholesterolemia, Hyperlipidemia, Pneumonia Denies: Hepatitis, HIV, Chronic Kidney Disease, Seizures, Sexually Transmitted Disease Surgical History: CABG (per old chart, pt denies, but uncertain of type of past open heart surgery), Cholecystectomy - [facility] Procedures DILATION OF 1 COR ART WITH 2 DRUG-ELUT, PERC APPROACH (10/05/16) GROUP PSYCHOTHERAPY (10/28/15) INDIVIDUAL PSYCHOTHERAPY, COGNITIVE-BEHAVIORAL (10/28/15) INTRODUCE OTH THROMBOLYTIC IN CORONARY ART, PERC (10/05/16) INTRODUCTION OF ANTI-INFLAM INTO RESP TRACT, VIA OPENING (07/16/16) MEASURE OF CARDIAC SAMPL & PRESSURE, L HEART, PERC APPROACH (10/05/16) NEBULIZER THERAPY (02/16/15) PLAIN RADIOGRAPHY OF L INT MAMM GRAFT USING OTH CONTRAST (05/17/15) PLAIN RADIOGRAPHY OF MULT COR ART USING OTH CONTRAST (10/05/16) PLAIN RADIOGRAPHY OF RIGHT AND LEFT HEART USING OTH CONTRAST (05/17/15) PLAIN RADIOGRAPHY OF THORACIC AORTA USING OTHER CONTRAST (05/17/15) Family History: States: CAD - Social History Hx Tobacco Use: No Hx Alcohol Use: No Hx Substance Use: No - Immunization History Hx Tetanus Toxoid Vaccination: No Hx Influenza Vaccination: Yes (04/2018) Hx Pneumococcal Vaccination: Yes Review Of Systems Constitutional: Positive for: Malaise. Negative for: Fever, Chills Cardiovascular: Negative for: Chest Pain, Palpitations Respiratory: Positive for: Shortness of Breath. Negative for: Cough Gastrointestinal: Negative for: Nausea, Vomiting, Abdominal Pain Skin: Negative for: Rash Neurological: Negative for: Weakness, Numbness, Headache Physical Exam - Physical Exam Appears: Non-toxic, No Acute Distress Skin: Warm, Dry Head: Normacephalic Eye(s): bilateral: Normal Inspection Oral Mucosa: Moist Throat: No Erythema, No Exudate Neck: Supple Chest: Symmetrical Cardiovascular: Rhythm Regular Respiratory: No Rales, Rhonchi (scattered), No Wheezing Gastrointestinal/Abdominal: Soft, No Tenderness, No Guarding, No Rebound Extremity: Bilateral: Atraumatic, Normal Color And Temperature, Normal ROM Neurological/Psych: Oriented x3, Normal Speech, Normal Cognition Gait: Steady ED Course And Treatment - Laboratory Results Result Diagrams: 08/10/18 20:01 08/10/18 20:01 ECG: Interpreted By Me, Viewed By Me ECG Rhythm: Sinus Rhythm (66), Nonspecific Changes O2 Sat by Pulse Oximetry: 94 Pulse Ox Interpretation: Normal Progress Note: Plan: - ABG. - EKG. - Labs. - Duoneb. - Blood culture. - Influenza A B. - UA Reevaluation Time: 22:37 Reassessment Condition: Improved Medical Decision Making Medical Decision Making: Upon provider reevaluation patient is feeling better, is medically stable, and requires no further treatment in the ED at this time. Patient will be discharged home with Rx for bactrim and albuterol . Counseling was provided and all questions were answered regarding diagnosis and need for follow up with dr olmstead. There is agreement to discharge plan. Return if symptoms persist or worsen. Disposition Counseled Patient/Family Regarding: Studies Performed, Diagnosis, Need For Followup, Rx Given - Disposition Referrals: Sebastian Olmstead MD [Staff Provider] - Disposition: HOME/ ROUTINE Disposition Time: 19:29 Condition: FAIR Additional Instructions: Please return if symptoms recur Prescriptions: Albuterol HFA [Ventolin HFA 90 mcg/actuation (8 g)] 2 puff IH [id number] #1 puff Sulfamethoxazole/Trimethoprim [Bactrim DS 800 mg-160 mg] 1 tab PO BID #14 tab Instructions: Acute Bronchitis, Adult (DC), Urinary Tract Infection, Adult (DC) Forms: [employer] (Ethiopian) - Clinical Impression Clinical Impression: UTI (urinary tract infection), Bronchitis - Scribe Statement The provider has reviewed the documentation as recorded by the Scribe Adryan Falcon All medical record entries made by the Scribe were at my direction and personally dictated by me. I have reviewed the chart and agree that the record accurately reflects my personal performance of the history, physical exam, medical decision making, and the department course for this patient. I have also personally directed, reviewed, and agree with the discharge instructions and disposition.
[2018-08-10 20:06] LABS: BASO % 0.7 % (0.0-2.0); EOS # 0.2 K/uL (0.0-0.7); EOS % 4.5 % (0.0-4.0); HEMOGLOBIN 12.4 g/dL (11.0-16.0); LYMPH # 1.9 K/uL (1.0-4.3); LYMPH % 39.2 % (20.0-40.0); MEAN CELL VOLUME 83.1 fL (81.0-99.0); MEAN CORPUSCULAR HEMOGLOBIN 26.9 pg (27.0-31.0); MEAN CORPUSCULAR HGB CONC 32.3 g/dL (33.0-37.0); MONO # 0.4 K/uL (0.0-0.8); MONO % 7.5 % (0.0-10.0); NEUT # 2.3 K/uL (1.8-7.0); NEUT % 48.1 % (50.0-75.0); RBC 4.6 Mil/uL (3.80-5.20); RED CELL DISTRIBUTION WIDTH 16.7 % (11.5-14.5); WHITE BLOOD COUNT 4.8 K/uL (4.8-10.8)
[2018-08-10] MEDS: Albuterol-Ipratrop 3 mg / 0.5 (3 ml) UD IH SCH (20:26)
[2018-08-10 20:29] LABS: ARTERIAL BLOOD GAS HCO3 24.6 mmol/L (21-28); ARTERIAL BLOOD GAS O2 SAT 87.4 % (95-98); ARTERIAL BLOOD GAS PCO2 43 mm/Hg (35-45); ARTERIAL BLOOD GAS PH 7.38 (7.35-7.45); ARTERIAL BLOOD GAS PO2 52 mm/Hg (80-100); ARTERIAL BLOOD GAS TCO2 26.7 mmol/L (22-28)
[2018-08-10] MEDS ORDERED: Albuterol-Ipratrop 3 mg / 0.5 (3 ml) UD ONE (20:41)
[2018-08-10 20:45] LABS: ALB/GLOB RATIO 1.2 (1.0-2.1); ALT/SGPT 43 U/L (9-52); AST/SGOT 69 U/L (14-36); BLOOD UREA NITROGEN 19 mg/dL (7-17); CALCIUM 8.3 mg/dl (8.6-10.4); GFR NON-AFRICAN AMERICAN > 60
[2018-08-10 20:57] LABS: INR 1.1; PROTHROMBIN TIME 11.9 SECONDS (9.7-12.2)
[2018-08-10 20:59] VITALS: RESP 18
[2018-08-10 21:11] LABS: SQUAMOUS EPITHIAL 2 /hpf (0-5); URINE BACTERIA RARE (<OCC); URINE BILIRUBIN NEGATIVE (NEGATIVE); URINE BLOOD 2+ (NEGATIVE); URINE CLARITY Hazy (Clear); URINE COLOR Yellow (YELLOW); URINE GLUCOSE (UA) 3+ mg/dL (Normal); URINE LEUKOCYTE ESTERASE 2+ Leu/uL (Negative); URINE PROTEIN 1+ mg/dL (NEGATIVE); URINE UROBILINOGEN NORMAL mg/dL (0.2-1.0)
[2018-08-10] MEDS ORDERED: Piperacillin/Tazobact 3.375 gm 100 ML IVPB STA (21:13)
[2018-08-10] MEDS ORDERED: Piperacillin/Tazobact 3.375 gm 100 ML IVPB ONE (21:47)
[2018-08-10 22:59] VITALS: BP 183/64; PULSE 76; TEMP 98; O2SAT 98
--- NOTE | 2018-08-11 10:29 | RAD ---
HISTORY: cough COMPARISON: Chest x-ray performed 07/25/18, chest x-ray portion of obstructive series performed 08/03/18 TECHNIQUE: Chest, one view. FINDINGS: Examination limited by habitus. LUNGS: Mild venous congestion. No focal consolidation. Please note that chest x-ray has limited sensitivity for the detection of pulmonary masses. PLEURA: No significant pleural effusion identified. No definite pneumothorax . CARDIOVASCULAR: Median sternotomy wires. Cardiomegaly. No significant atherosclerotic calcification present. OSSEOUS STRUCTURES: Degenerative changes. VISUALIZED UPPER ABDOMEN: Unremarkable. OTHER FINDINGS: None. IMPRESSION: Mild venous congestion. Cardiomegaly.
--- NOTE | 2018-08-11 12:03 | CARD ---
APPROVED REPORT Date of service: 08/10/2018 EKG Measurement Heart [id number] <Conclusion> Normal sinus rhythm Left axis deviation T wave abnormality, consider lateral ischemia Abnormal ECG
== END 2018-08-10 23:45 | disposition home or self-care (01) ==
LOC: C.ER 18:43
DX: J40 Bronchitis, not specified as acute or chronic (principal); N39.0 Urinary tract infection, site not specified
CPT/HCPCS: 36600; 71045; 80053; 81001; 82803; 84484; 85025; 85378; 85610; 85730; 87040; 87804; 93005; 94640; 96365; 99285; J2543

== ENCOUNTER 2018-10-06 10:35 | Emergency (ER) | payer MEDICARE, MEDICAID ==
[2018-10-06 10:37] VITALS: BMI 40.9
[2018-10-06 12:20] LABS: BASO % 0.5 % (0.0-2.0); EOS # 0.1 K/uL (0.0-0.7); EOS % 1.7 % (0.0-4.0); HEMOGLOBIN 11.6 g/dL (11.0-16.0); LYMPH # 2.5 K/uL (1.0-4.3); MEAN CELL VOLUME 84.5 fL (81.0-99.0); MEAN CORPUSCULAR HEMOGLOBIN 27.2 pg (27.0-31.0); MEAN CORPUSCULAR HGB CONC 32.2 g/dL (33.0-37.0); MEAN PLATELET VOLUME 7.6 fL (7.2-11.7); MONO # 0.5 K/uL (0.0-0.8); MONO % 7.1 % (0.0-10.0); NEUT # 4.4 K/uL (1.8-7.0); NEUT % 57.7 % (50.0-75.0); RBC 4.24 Mil/uL (3.80-5.20); RED CELL DISTRIBUTION WIDTH 15.8 % (11.5-14.5)
[2018-10-06 12:23] LABS: WHITE BLOOD COUNT 7.6 K/uL (4.8-10.8)
[2018-10-06 12:29] LABS: PROTHROMBIN TIME 11.4 SECONDS (9.7-12.2)
[2018-10-06 12:30] LABS: SQUAMOUS EPITHIAL 2 /hpf (0-5); URINE BACTERIA RARE (<OCC); URINE BILIRUBIN NEGATIVE (NEGATIVE); URINE BLOOD NEGATIVE (NEGATIVE); URINE CLARITY Clear (Clear); URINE COLOR Yellow (YELLOW); URINE GLUCOSE (UA) 3+ mg/dL (Normal); URINE LEUKOCYTE ESTERASE NEG Leu/uL (Negative); URINE PROTEIN NEGATIVE (NEGATIVE); URINE UROBILINOGEN NORMAL mg/dL (0.2-1.0)
[2018-10-06 12:34] LABS: ALB/GLOB RATIO 1.5 (1.0-2.1); ALBUMIN 4.4 g/dL (3.5-5.0); BLOOD UREA NITROGEN 18 mg/dL (7-17); CALCIUM 8.6 mg/dl (8.6-10.4); GFR NON-AFRICAN AMERICAN > 60; LIPASE 359 U/L (23-300)
[2018-10-06 12:36] LABS: ALT/SGPT 30 U/L (9-52); AST/SGOT 44 U/L (14-36)
[2018-10-06 12:50] LABS: BARBITURATES, UR NEGATIVE (NEGATIVE); BENZODIAZEPINES, UR NEGATIVE (NEGATIVE); PHENCYCLIDINE, UR NEGATIVE (NEGATIVE)
[2018-10-06 13:20] LABS: OPIATES, UR POSITIVE (NEGATIVE)
[2018-10-06] MEDS ORDERED: Sodium Chloride 0.9% 1,000 ML IV ONE (13:36)
[2018-10-06] MEDS ORDERED: Iodixanol 320 MG/ML 100 ML BOTTLE IV ONE (14:20)
[2018-10-06 15:09] VITALS: TEMP 97.9
[2018-10-06] MEDS ORDERED: Sodium Chloride 0.9% 1,000 ML ONE (15:13)
--- NOTE | 2018-10-06 15:17 | C.PDOC ---
History Of Present Illness 62 y/o female brought to ER by ambulance for evaluation of chest and abdominal pain after she had a fall yesterday. Patient states that she was taking a taxi to attend a program for her psychiatric illness yesterday. Patient reports that she slipped and fell after she got out of a taxi yesterday. She notes that she was able to get up with the help of bystanders and she was able to attend the program. Patient is complaining of abdominal pain and bilateral knee pain. She denies having LOC, head injury,CP,SOB, nausea, and vomiting. Of note, patient states that she was recently admitted for "kidney infection" and kidney stones. - HPI Chief Complaint (Nursing): Trauma History Per: Patient History/Exam Limitations: no limitations Onset/Duration Of Symptoms: Days Severity: Moderate Past Medical History Reviewed: Historical Data, Nursing Documentation, Vital Signs Vital Signs: Last Vital Signs Temp 98.4 F 10/06/18 10:45 Pulse 68 10/06/18 10:45 Resp 20 10/06/18 10:45 BP 189/84 H 10/06/18 10:45 Pulse Ox 97 10/06/18 10:45 - Medical History PMH: Anemia, Anxiety, Asthma, Bipolar Disorder, Bronchitis, CAD, CHF, COPD, Depression, Diabetes, Gall Bladder Disease, HTN, Hypercholesterolemia, Hyperlipidemia, Pneumonia Denies: Hepatitis, HIV, Chronic Kidney Disease, Seizures, Sexually Transmitted Disease Surgical History: CABG (per old chart, pt denies, but uncertain of type of past open heart surgery), Cholecystectomy - [facility] Procedures DILATION OF 1 COR ART WITH 2 DRUG-ELUT, PERC APPROACH (10/05/16) GROUP PSYCHOTHERAPY (10/28/15) INDIVIDUAL PSYCHOTHERAPY, COGNITIVE-BEHAVIORAL (10/28/15) INTRODUCE OTH THROMBOLYTIC IN CORONARY ART, PERC (10/05/16) INTRODUCTION OF ANTI-INFLAM INTO RESP TRACT, VIA OPENING (07/16/16) MEASURE OF CARDIAC SAMPL & PRESSURE, L HEART, PERC APPROACH (10/05/16) NEBULIZER THERAPY (02/16/15) PLAIN RADIOGRAPHY OF L INT MAMM GRAFT USING OTH CONTRAST (05/17/15) PLAIN RADIOGRAPHY OF MULT COR ART USING OTH CONTRAST (10/05/16) PLAIN RADIOGRAPHY OF RIGHT AND LEFT HEART USING OTH CONTRAST (05/17/15) PLAIN RADIOGRAPHY OF THORACIC AORTA USING OTHER CONTRAST (05/17/15) Family History: States: CAD - Social History Hx Tobacco Use: No Hx Alcohol Use: No Hx Substance Use: No - Immunization History Hx Tetanus Toxoid Vaccination: No Hx Influenza Vaccination: Yes (04/2018) Hx Pneumococcal Vaccination: Yes Review Of Systems Except As Marked, All Systems Reviewed And Found Negative. Constitutional: Negative for: Fever, Chills Cardiovascular: Negative for: Chest Pain Respiratory: Negative for: Shortness of Breath Gastrointestinal: Positive for: Abdominal Pain. Negative for: Nausea, Vomiting Musculoskeletal: Positive for: Other (bilateral knee pain) Physical Exam - Physical Exam Appears: Non-toxic, No Acute Distress Skin: Normal Color, Warm, Dry, Other (abrasion to left anterior knee, contusion to right medial knee) Head: Atraumatic, Normacephalic Eye(s): bilateral: Normal Inspection Nose: Normal Oral Mucosa: Moist Neck: Supple Chest: Symmetrical Cardiovascular: Rhythm Regular Respiratory: Normal Breath Sounds, No Rales, No Rhonchi, No Wheezing Gastrointestinal/Abdominal: Soft, Tenderness (diffuse tenderness), No Guarding, No Rebound, Other (3 large ecchymotic region to abdomen,1 region close to belly button and 2 regions in LLQ (patient states these contusions are from heparin injections during recent hospitalization)) Extremity: Normal ROM Neurological/Psych: Oriented x3, Normal Speech, Normal Motor, Normal Sensation Gait: Steady ED Course And Treatment - Laboratory Results Result Diagrams: 10/06/18 12:16 10/06/18 12:16 Lab Results: PT 11.4 SECONDS (9.7-12.2) 10/06/18 12:16 INR 1.0 10/06/18 12:16 APTT 31 SECONDS (21-34) 10/06/18 12:16 Troponin I < 0.0120 ng/mL (0.00-0.120) 10/06/18 12:16 Total Bilirubin 0.5 mg/dL (0.2-1.3) 10/06/18 12:16 AST 44 U/L (14-36) H D 10/06/18 12:16 ALT 30 U/L (9-52) 10/06/18 12:16 Alkaline Phosphatase 64 U/L (38-126) 10/06/18 12:16 Total Protein 7.3 g/dL (6.3-8.3) 10/06/18 12:16 Albumin 4.4 g/dL (3.5-5.0) 10/06/18 12:16 Globulin 2.9 gm/dL (2.2-3.9) 10/06/18 12:16 Albumin/Globulin Ratio 1.5 (1.0-2.1) 10/06/18 12:16 Lipase 359 U/L (23-300) H 10/06/18 12:16 Urine Color Yellow (YELLOW) 10/06/18 12:16 Urine Clarity Clear (Clear) 10/06/18 12:16 Urine pH 7.0 (5.0-8.0) 10/06/18 12:16 Ur Specific [place] 1.008 (1.003-1.030) 10/06/18 12:16 Urine Protein Negative mg/dL (NEGATIVE) 10/06/18 12:16 Urine Glucose (UA) 3+ mg/dL (Normal) H 10/06/18 12:16 Urine Ketones Negative mg/dL (NEGATIVE) 10/06/18 12:16 Urine Blood Negative (NEGATIVE) 10/06/18 12:16 Urine Nitrate Negative (NEGATIVE) 10/06/18 12:16 Urine Bilirubin Negative (NEGATIVE) 10/06/18 12:16 Urine Urobilinogen Normal mg/dL (0.2-1.0) 10/06/18 12:16 Ur Leukocyte Esterase Neg Luther/uL (Negative) 10/06/18 12:16 Urine WBC (Auto) 1 /hpf (0-5) 10/06/18 12:16 Urine RBC (Auto) < 1 /hpf (0-3) 10/06/18 12:16 Ur Squamous Epith Cells 2 /hpf (0-5) 10/06/18 12:16 Urine Bacteria Rare (<OCC) 10/06/18 12:16 ECG: Interpreted By Me, Viewed By Me ECG Rhythm: Sinus Rhythm Interpretation Of ECG: NSR with 1st degree AV Block, left axis deviation, normal QRS, normal PA intervals, and no ST elevations/depressions Rate From EC O2 Sat by Pulse Oximetry: 97 (RA) Pulse Ox Interpretation: Normal - CT Scan/US CT-Head Other Rad Studies (CT/US): Read By Radiologist, Radiology Report Reviewed CT/US Interpretation: Date of service: 10/06/2018. PROCEDURE: CT HEAD WITHOUT CONTRAST. HISTORY: fall the. COMPARISON: Comparison made with CT scan of the brain 08/03/2018.. TECHNIQUE: Axial computed tomography images were obtained through the head/brain without intravenous contrast. Radiation dose: Total exam DLP = 1092.28 mGy-cm. This CT exam was performed using one or more of the following dose reduction techniques: Automated exposure control, adjustment of the mA and/or kV according to patient size, and/or use of iterative reconstruction technique. FINDINGS: HEMORRHAGE: No acute parenchymal, subarachnoid nor extra-axial hemorrhage.. BRAIN: Redemonstrated are localized moderately large the area of partially cystic encephalomalacia changes involving the left temporal lobe and posterior temporoparietal watershed zone with a craniectomy defect overlying the posterior superior aspect of the encephalomalacia. Findings may be secondary to old trauma. Clinical correlation with history recommended. Persistent ex vacuo dilatation of the left atrium and to a lesser degree left temporal horn. Suspect minimal chronic periventricular white matter ischemic changes. Mild generalized volume loss not withstanding at aforementioned ex vacuo dilatation. VENTRICLES: No active hydrocephalus. CALVARIUM: Apart from aforementioned craniectomy defect in the left posterior temporoparietal region calvarium is intact. Mild hyperostosis frontalis interna. PARANASAL SINUSES: Unremarkable as visualized. No significant inflammatory changes. MASTOID AIR CELLS: Unremarkable as visualized. No inflammatory changes. OTHER FINDINGS: None. IMPRESSION: Stable appearing on partially cystic encephalomalacia left temporal and posterior temporoparietal region with overlying stable appearing craniectomy defect. No evidence of acute intracranial hemorrhage. Suspect minor chronic periventricular white matter ischemic changes. Mild generalized volume loss not withstanding aforementioned ex vacuo dilatation CT-Chest/Abd/Pelv. Other Rad Studies (CT/US): Read By Radiologist, Radiology Report Reviewed CT/US Interpretation: Date of service: 10/06/2018. PROCEDURE: CT Chest, Abd omen and Pelvis with intravenous contrast. HISTORY: Status post fall with pain.. COMPARISON: None available. TECHNIQUE: Contiguous helical/transaxial sections of the chest abdomen pelvis performed following intravenous injection of approximately 100 cc Visipaque 320 contrast material. Additional 2D sagittal and coronal reformats generated. Comparison made with prior CT scan of the abdomen pelvis 07/25/2018. Radiation dose: In the. Total exam DLP = 1821.32 mGy-cm. This CT exam was performed using one or more of the following dose reduction techniques: Automated exposure control, adjustment of the mA and/or kV according to patient size, and/or use of iterative reconstruction technique. FINDINGS: CT CHEST WITH CONTRAST: LUNGS: There is a small approximately 3.9 mm nodule in the anterior aspect right upper lobe seen on axial series 4, image number 35.. Additionally, there is a tiny approximately 3 mm subpleural nodule left lateral lower lung field series 4, image number 44. Follow-up of CT scan in 4-6 months recommended to assess stability and exclude aggressive lesions of. No acute infiltrates. No evidence of effusion or pneumothorax. MEDIASTINUM: Heart is enlarged. No significant pericardial effusion. Ascending thoracic aorta measures approximately 2.9 cm and descending thoracic aorta measures approximately 2.4 cm. Minor aortic atherosclerotic calcification. Common origin right brachiocephalic and left carotid artery. Pulmonary trunk measures approximately 2.4 cm. Trachea midline and patent. There are no large central endoluminal lesions. Small hiatal hernia. LYMPH NODES: There are a few tiny nonspecific mediastinal lymph nodes. No significant hilar adenopathy. PLEURA: Unremarkable. No pneumothorax. No pleural fluid. BONES: Status post sternotomy and CABG surgery. OTHER FINDINGS: None. CT ABDOMEN AND PELVIS: LIVER: Liver is enlarged measuring nearly 22 cm in CC dimension however this could be due to a Richy's lobe. Liver is otherwise intact with no evidence of a posttraumatic sequela. Minimal fatty hepatic infiltration. Portal and splenic veins are opacified. GALLBLADDER AND BILE DUCTS: Unremarkable. PANCREAS: Pancreas slightly atrophic and fatty replaced. No pancreatic mass collection or calcification. SPLEEN: Spleen exhibits normal size and attenuation pattern with no evidence of posttraumatic sequela. ADRENALS: No adrenal lesions. KIDNEYS AND URETERS: Kidneys demonstrate relatively symmetric size and nephrograms. The kidneys appear intact without evidence of parenchymal laceration hematoma or subcapsular hemorrhage. No evidence of renal infarct. . Redemonstrated is a rounded approximately 11 mm nonobstructing calculus posterior aspect upper/midpole left kidney unchanged. No evidence of hydronephrosis. VASCULATURE: Minor aortic atherosclerotic calcification or mural plaque present.. No aortic aneurysm. BOWEL: Evaluation of the bowel is somewhat limited due to the lack of oral contrast material.. The stomach is incompletely distended with thick-walled appearance. Visualized loops of small bowel exhibit normal contour and caliber. No evidence of acute mechanical small bowel obstruction. APPENDIX: Normal-appearing appendix. PERITONEUM: Unremarkable. No free fluid. No free air. LYMPH NODES: Unremarkable. No enlarged lymph nodes. BLADDER: The urinary bladder is physiologically distende d. No evidence of intraluminal gallbladder calculi. REPRODUCTIVE: Rounded bulbous low-attenuation appearance of the uterine fundus likely representing a larger fibroid however follow-up pelvic ultrasound is recommended to confirm and exclude other pathology including endometrial neoplasm. BONES: No acute fractures. OTHER FINDINGS: None. IMPRESSION: No acute intrathoracic posttraumatic sequela. There is a small approximately 3.9 mm nodule right upper lobe and another approximately 3 mm subpleural nodule left lateral lower lung field. Recommend follow-up CT scan in 4-6 months to assess stability exclude other pathology. Cardiomegaly. No acute intra-abdominal posttraumatic sequela. Hepatomegaly possibly due to Richy's lobe. Fatty hepatic infiltration. Nonobstructing 11 mm calculus right kidney as described. Bulbous rounded low- attenuation appearance of the uterine fundus possibly representing uterine fibroid however follow-up of pelvic ultrasound recommended to exclude other pathology including endometrial carcinoma. Medical Decision Making Medical Decision Making: Plan: --Labs --UA --CT-Head --CT-Chest --IV Fluids Updates: CT Scans are negative. On re-evaluation, patient feels better. Patient has been discharged and instructed to follow up in medical clinic. Disposition Counseled Patient/Family Regarding: Studies Performed, Diagnosis, Need For Followup - Disposition Referrals: [facility] [Outside] [facility] [Outside] Disposition: HOME/ ROUTINE Disposition Time: 16:18 Condition: GOOD Additional Instructions: DERIK CANO, thank you for letting us take care of you today. Your provider was Amelia Chauhan MD and you were treated for FELL. The emergency medical care you received today was directed at your acute symptoms. If you were prescribed any medication, please fill it and take as directed. It may take several days for your symptoms to resolve. Return to the Emergency Department if your symptoms worsen, do not improve, or if you have any other problems. Please contact your doctor or call one of the physicians/clinics you have been referred to that are listed on the Patient Visit Information form that is included in your discharge packet. Bring any paperwork you were given at discharge with you along with any medications you are taking to your follow up visit. Our treatment cannot replace ongoing medical care by a primary care provider outside of the emergency department. Thank you for allowing the [facility] team to be part of your care today. Instructions: Hyperglycemia, Adult (DC), Muscle and Bone Pain (DC), Contusion (DC), Preventing Falls, Skin Abrasions (DC) Forms: [employer] (Albanian), General Discharge Instructions - POA Present On Arrival: None - Clinical Impression Clinical Impression: Contusion, Multiple abrasions, Fall from slip, trip, or stumble, Elevated lipase, Hyperglycemia, Musculoskeletal pain - Scribe Statement The provider has reviewed the documentation as recorded by the Andresibe Gilbert Arboleda Provider Attestation: All medical record entries made by the Scribe were at my direction and personally dictated by me. I have reviewed the chart and agree that the record accurately reflects my personal performance of the history, physical exam, medical decision making, and the department course for this patient. I have also personally directed, reviewed, and agree with the discharge instructions and disposition.
--- NOTE | 2018-10-06 15:21 | CT ---
Date of service: 10/06/2018 PROCEDURE: CT HEAD WITHOUT CONTRAST. HISTORY: fall the COMPARISON: Comparison made with CT scan of the brain 08/03/2018.. TECHNIQUE: Axial computed tomography images were obtained through the head/brain without intravenous contrast. Radiation dose: Total exam DLP = 1092.28 mGy-cm. This CT exam was performed using one or more of the following dose reduction techniques: Automated exposure control, adjustment of the mA and/or kV according to patient size, and/or use of iterative reconstruction technique. FINDINGS: HEMORRHAGE: No acute parenchymal, subarachnoid nor extra-axial hemorrhage.. BRAIN: Redemonstrated are localized moderately large the area of partially cystic encephalomalacia changes involving the left temporal lobe and posterior temporoparietal watershed zone with a craniectomy defect overlying the posterior superior aspect of the encephalomalacia. Findings may be secondary to old trauma. Clinical correlation with history recommended. Persistent ex vacuo dilatation of the left atrium and to a lesser degree left temporal horn. Suspect minimal chronic periventricular white matter ischemic changes. Mild generalized volume loss not withstanding at aforementioned ex vacuo dilatation VENTRICLES: No active hydrocephalus. CALVARIUM: Apart from aforementioned craniectomy defect in the left posterior temporoparietal region calvarium is intact. Mild hyperostosis frontalis interna. PARANASAL SINUSES: Unremarkable as visualized. No significant inflammatory changes. MASTOID AIR CELLS: Unremarkable as visualized. No inflammatory changes. OTHER FINDINGS: None. IMPRESSION: Stable appearing on partially cystic encephalomalacia left temporal and posterior temporoparietal region with overlying stable appearing craniectomy defect. No evidence of acute intracranial hemorrhage. Suspect minor chronic periventricular white matter ischemic changes. Mild generalized volume loss not withstanding aforementioned ex vacuo dilatation
--- NOTE | 2018-10-06 15:55 | CT ---
Date of service: 10/06/2018 PROCEDURE: CT Chest, Abdomen and Pelvis with intravenous contrast HISTORY: Status post fall with pain.. COMPARISON: None available. TECHNIQUE: Contiguous helical/transaxial sections of the chest abdomen pelvis performed following intravenous injection of approximately 100 cc Visipaque 320 contrast material. Additional 2D sagittal and coronal reformats generated. Comparison made with prior CT scan of the abdomen pelvis 07/25/2018. Radiation dose: In the Total exam DLP = 1821.32 mGy-cm. This CT exam was performed using one or more of the following dose reduction techniques: Automated exposure control, adjustment of the mA and/or kV according to patient size, and/or use of iterative reconstruction technique. FINDINGS: CT CHEST WITH CONTRAST: LUNGS: There is a small approximately 3.9 mm nodule in the anterior aspect right upper lobe seen on axial series 4, image number 35.. Additionally, there is a tiny approximately 3 mm subpleural nodule left lateral lower lung field series 4, image number 44. Follow-up of CT scan in 4-6 months recommended to assess stability and exclude aggressive lesions of. No acute infiltrates. No evidence of effusion or pneumothorax MEDIASTINUM: Heart is enlarged. No significant pericardial effusion. Ascending thoracic aorta measures approximately 2.9 cm and descending thoracic aorta measures approximately 2.4 cm. Minor aortic atherosclerotic calcification. Common origin right brachiocephalic and left carotid artery. Pulmonary trunk measures approximately 2.4 cm. Trachea midline and patent. There are no large central endoluminal lesions. Small hiatal hernia. LYMPH NODES: There are a few tiny nonspecific mediastinal lymph nodes. No significant hilar adenopathy. PLEURA: Unremarkable. No pneumothorax. No pleural fluid. BONES: Status post sternotomy and CABG surgery. OTHER FINDINGS: None. CT ABDOMEN AND PELVIS: LIVER: Liver is enlarged measuring nearly 22 cm in CC dimension however this could be due to a Richy's lobe. Liver is otherwise intact with no evidence of a posttraumatic sequela. Minimal fatty hepatic infiltration. Portal and splenic veins are opacified. GALLBLADDER AND BILE DUCTS: Unremarkable. PANCREAS: Pancreas slightly atrophic and fatty replaced. No pancreatic mass collection or calcification. SPLEEN: Spleen exhibits normal size and attenuation pattern with no evidence of posttraumatic sequela. ADRENALS: No adrenal lesions. KIDNEYS AND URETERS: Kidneys demonstrate relatively symmetric size and nephrograms. The kidneys appear intact without evidence of parenchymal laceration hematoma or subcapsular hemorrhage. No evidence of renal infarct. . Redemonstrated is a rounded approximately 11 mm nonobstructing calculus posterior aspect upper/midpole left kidney unchanged. No evidence of hydronephrosis. VASCULATURE: Minor aortic atherosclerotic calcification or mural plaque present.. No aortic aneurysm. BOWEL: Evaluation of the bowel is somewhat limited due to the lack of oral contrast material.. The stomach is incompletely distended with thick-walled appearance. Visualized loops of small bowel exhibit normal contour and caliber. No evidence of acute mechanical small bowel obstruction. APPENDIX: Normal-appearing appendix PERITONEUM: Unremarkable. No free fluid. No free air. LYMPH NODES: Unremarkable. No enlarged lymph nodes. BLADDER: The urinary bladder is physiologically distended. No evidence of intraluminal gallbladder calculi. REPRODUCTIVE: Rounded bulbous low-attenuation appearance of the uterine fundus likely representing a larger fibroid however follow-up pelvic ultrasound is recommended to confirm and exclude other pathology including endometrial neoplasm. BONES: No acute fractures. OTHER FINDINGS: None. IMPRESSION: No acute intrathoracic posttraumatic sequela. There is a small approximately 3.9 mm nodule right upper lobe and another approximately 3 mm subpleural nodule left lateral lower lung field. Recommend follow-up CT scan in 4-6 months to assess stability exclude other pathology. Cardiomegaly. No acute intra-abdominal posttraumatic sequela. Hepatomegaly possibly due to Richy's lobe. Fatty hepatic infiltration. Nonobstructing 11 mm calculus right kidney as described. Bulbous rounded low-attenuation appearance of the uterine fundus possibly representing uterine fibroid however follow-up of pelvic ultrasound recommended to exclude other pathology including endometrial carcinoma.
[2018-10-06 16:34] VITALS: BP 174/77; PULSE 77; RESP 20
[2018-10-06 17:04] VITALS: O2SAT 97
--- NOTE | 2018-10-08 21:46 | CARD ---
APPROVED REPORT Date of service: 10/06/2018 EKG Measurement Heart [id number] <Conclusion> Sinus rhythm with 1st degree AV block Left axis deviation Abnormal ECG
== END 2018-10-06 16:53 | disposition home or self-care (01) ==
LOC: C.ER 10:35
DX: M79.18 Myalgia, other site (principal); R74.8 Abnormal levels of other serum enzymes; E11.65 Type 2 diabetes mellitus with hyperglycemia; S80.212A Abrasion, left knee, initial encounter; S80.01XA Contusion of right knee, initial encounter; W01.0XXA Fall on same level from slipping, tripping and stumbling without subsequent striking against object, initial encounter; I25.10 Atherosclerotic heart disease of native coronary artery without angina pectoris; J44.9 Chronic obstructive pulmonary disease, unspecified; I50.9 Heart failure, unspecified; I10 Essential (primary) hypertension; E78.00 Pure hypercholesterolemia, unspecified; E78.5 Hyperlipidemia, unspecified
CPT/HCPCS: 70450; 71260; 74177; 80053; 81001; 82948; 83690; 84484; 85025; 85610; 85730; 99285; G0480; J7030; Q9967